=== PATIENT | male | born 1985 | race Caucasian/White ===

== ENCOUNTER 2018-01-07 21:25 | Emergency (ER) | payer SELFPAY ==
[2018-01-07 21:35] VITALS: BP 132/81; PULSE 94; RESP 16; TEMP 36.7; O2SAT 96
--- NOTE | 2018-01-07 21:49 | DI.RPTCT_ITS ---
SYMPTOM/DIAGNOSIS: TRAUMA TO LT LATERAL ORBIT ORBITAL CT: The globes are intact. The lens is located normally bilaterally. There is no evidence of an abnormality involving the retrobulbar fat. There is nothing to suggest a hematoma. The optic nerves are well maintained. The extra ocular muscles and lacrimal glands are intact. Note is made of complete opacification of the left maxillary sinus and mild mucosal thickening involving the right maxillary sinus. There is near complete opacification of the left ethmoid sinus as well.. The bony structures are unremarkable. There is no evidence of significant soft tissue swelling. IMPRESSION: No acute abnormality involving the left orbit is identified. There is significant left sided maxillary and ethmoid sinusitis which may in fact be causing the patient's symptomatology.
--- NOTE | 2018-01-07 22:00 | ED.GENADUL_ITS ---
Medical Decision Making - Medical Decision Making Patient presents today with chief complaint of injury to the left eye. Injuries sustained at work a few hours ago on a piece of 2 x 4 came back suddenly striking the lateral aspect of the left eye. He has orbital tenderness with palpation over the lateral inferior aspect of the orbit. No palpable defect. No crepitus. Extraocular movements are intact. Slight change in visual acuity in the left compared to the right, please see HPI. Patient I discussed imaging techniques. At this point, does not seem to involve the eye itself. He denies any foreign body sensation or pain in the eye. No pain elicited with extraocular movements. Patient I discussed her/ benefits of imaging to evaluate for possible orbital fracture. At this point, I advised that no intervention would be necessary as he exhibits no signs of entrapment. However, given the level of discomfort, patient prefers to undergo imaging. We did discuss risk of radiation. Patient continues to want imaging. I have ordered a CT of the orbits. At the end of my shift, imaging is pending. Care was transitioned to Dr. Krishna. History of Present Illness - General Chief complaint: EyeProblem Stated complaint: EYE INJURY Time Seen by Provider: 01/07/18 21:49 Source: patient, RN notes reviewed Mode of arrival: ambulatory Limitations: no limitations - History of Present Illness Initial comments: Patient is a 32-year-old male presenting today with chief complaint of left eye pain. He reports that few hours prior to arrival, while at work, he was cutting a stood from a wall. He reports that the 2 x 4 suddenly kicked back and struck the lateral aspect of the eye. He denies getting hit in the eye itself. No foreign body sensation. No pain in the eye. Reports that he has had some intermittent blurred vision. Visual acuity was assessed by nursing staff when he first came in, right eye was noted to be 20/20, left 20/35, 20/25 bilateral. Patient does not wear any corrective lenses. Is not having contacts. No break in the skin. Patient reports that he had tetanus approximately 3 months ago by his primary care. Is concerned with the amount of pain he continues to have along the lateral and inferior aspect of the orbital rim. He denies any headache. Denies loss of consciousness. - Related Data Unknown [No Known Home Meds] 01/07/18 Allergies Allergy/AdvReac Type Severity Reaction Status Date / Time amoxicillin [Amoxicillin] Allergy Severe anaphylaxis Unverified 11/01/17 22:07 Penicillins Allergy Severe Anaphylaxis Unverified 11/01/17 22:12 Sulfa (Sulfonamide Allergy Severe anaphylaxis Unverified 11/01/17 22:07 Antibiotics) Review of Systems Constitutional: no symptoms reported Eyes: as per HPI ENT: denies: ear pain, throat pain, dental pain Respiratory: no symptoms reported Skin: as per HPI Neurological: as per HPI Past Medical History - Past Medical History eczema - Social History Alcohol use: none Drug use: none General Exam - General Limitations: no limitations General appearance: alert, in no apparent distress - Head Head exam: Present: atraumatic, normocephalic, normal inspection - Eye Eye exam: Present: PERRL, EOMI, conjunctival injection, periorbital tenderness. Absent: normal apperance (Patient has a circumferential area of ecchymosis along the lateral aspect of the left eye. Ecchymosis approximately 1 cm diameter. No palpable deformity is noted with palpation about the orbit. However, patient has exquisite discomfort along the inferior lateral aspect of the orbit. No pain superiorly. Extraocular muscles are intact. No pain with extra ocular movements. Pupils are equal round and reactive. Minimal injection noted. No foreign bodies visualized does have pain on the tried to pull down the lower lid, this seems to irritate the inferior orbit), scleral icterus, nystagmus, periorbital swelling (Ecchymosis) - ENT ENT exam: Present: normal exam, normal orophraynx, mucous membranes moist, other (Movement of the jaw. TMJ is without pain on palpation or range of motion testing) - Neck Neck exam: Present: normal inspection. Absent: tenderness - Respiratory Respiratory exam: Present: normal lung sounds bilaterally. Absent: respiratory distress - Cardiovascular Cardiovascular Exam: Present: regular rate, normal rhythm, normal heart sounds - Neurological Exam Neurological exam: Present: alert, CN II-XII intact, normal gait - Psychiatric Psychiatric exam: Present: normal affect, normal mood - Skin Skin exam: Present: warm, dry, intact. Absent: normal color (Ecchymosis as above) Course Vital Signs - 24 hr 01/07/18 21:35 Temperature 36.7 C Pulse 94 H Respiratory 16 Rate Blood Pressure 132/81 Pulse Oximetry 96
--- NOTE | 2018-01-07 23:15 | DI.VRAD_ITS ---
EXAM: CT Orbits Without Intravenous Contrast EXAM DATE/TIME: 01/07/2018 9:51 PM CLINICAL HISTORY: 32 years old, male; Pain; Eye pain; Left TECHNIQUE: Axial computed tomography images of the orbits without intravenous contrast. Coronal and sagittal reformatted images were created and reviewed. COMPARISON: No relevant prior studies available. FINDINGS: Orbits: Globes are intact. Lens are located bilaterally. No retrobulbar fat stranding or hematoma. Optic nerves are symmetric and appear unremarkable. Unremarkable appearance of the extraocular muscles and lacrimal glands bilaterally. Sinuses: Complete opacification of the left maxillary sinus. Mild mucosal thickening involving the right maxillary sinus. Near complete opacification of the left ethmoid air cells. Bones/joints: No acute fracture. Soft tissues: No significant facial soft tissue swelling. IMPRESSION: No evidence of acute pathology involving the left orbit. However, there is significant left-sided paranasal sinus disease which may be the cause of the perceived left eye pain. Dictated and Authenticated by: Everette Carter MD. Ordering:RUY JOSE MD
--- NOTE | 2018-01-07 23:27 | ED.FU ---
Disposition Clinical Impression: Contusion of left eyelid and periocular area, initial encounter Disposition: HOME Condition: Good Instructions: Contusion in Adults (ED) Additional Instructions: Use Motrin or Tylenol for pain. Use ice for swelling. Symptoms should resolve over the next few days and you should be feeling better. Follow-up with your doctor next week if not. Return to ED for any vision change, loss of vision, severe headache, other concerns. Referrals: Serafin Dos Santos MD [Primary Care Provider] - Medical Decision Making - Radiology Data Radiology results: report reviewed - Medical Decision Making CT scan of the orbits are negative. There is no fracture seen. He does have sinus disease but he has no sinus symptoms on speaking with him. Patient will be discharged home to use ice and Motrin for pain and swelling. Follow-up with his doctor next week as needed. Return to ED for eye pain, vision change, neurologic symptoms, other concerns. Care Signed Out By:: Anna Amaya - Vital Signs Recent Vitals - 8H: Vital Signs - 8 hr 01/07/18 21:35 Temperature 98.1 F Pulse 94 H Respiratory 16 Rate Blood Pressure 132/81 Pulse Oximetry 96 - Continuation of Care Continuation of Care Plan: Patient presented after being struck near the left eye with a 2 x 4 while working. He did not have loss of consciousness. He had no vision change. He has no eye pain. He was put in for CT scan of the face/orbits. Patient signed out to me pending these results.
== END 2018-01-07 23:30 | disposition home or self-care (01) ==
PROVIDERS: Emergency Provider Emergency Medicine; PCP Internal Medicine
DX: H53.8 Other visual disturbances (principal); S00.12XA Contusion of left eyelid and periocular area, initial encounter; W22.8XXA Striking against or struck by other objects, initial encounter; Y99.0 Civilian activity done for income or pay
CPT/HCPCS: 99284; 70480

== ENCOUNTER 2018-04-03 09:10 | Emergency (ER) | payer SELFPAY ==
[2018-04-03] VITALS (76 sets, daily range): BP systolic 106–170; BP diastolic 51–127; PULSE 62–132; RESP 11–24; TEMP 36.6–36.7; O2SAT 90–98
[2018-04-03] MEDS: Normal Saline 1,000 ML 1000 ML IV (09:40)
--- NOTE | 2018-04-03 09:48 | W.ED.GENAD ---
Discharge Plan Disposition Patient Disposition: HOME Condition: Stable Discharge Details Chief Complaint: Abd Prob Clinical Impression: Epigastric pain, History of esophagitis Primary Care Provider: Serafin Dos Santos ED Provider: Barbara Mock Home Meds and New Rx's Prescriptions: New pantoprazole 20 mg tablet,delayed release (DR/EC) 20 mg PO DAILY Qty: 10 RF: 0 Discharge Instructions Instructions: Epigastric Pain (ED), Esophagitis (ED) Additional Instructions: Take the Protonix daily as directed. Take the Dilaudid or oxycodone as needed and directed for pain. Call the surgery office on Friday morning to schedule follow-up appointment for reevaluation. Return immediately to the emergency department with any worsening or new concerning Referrals: Lissette Hoang MD [ [facility] STAFF PHYSICIAN] - Discharge Data Discharge Date/Time-TO BE ENTERED AT DEPARTURE: 04/03/18 17:58 Discharge Physician: Barbara Mock Medical Decision Making 32-year-old male with a previous history of ruptured esophagus 2 years ago who presents with sudden onset of substernal chest pain with radiation to neck after swallowing a hard piece of venison sausage this morning. Vitals within normal limits. Patient appears uncomfortable. He is able to speak and swallow his own secretions. Patient is spitting up but no active vomiting. There is clear blood tinged phlegm noted in vomitus bag ~approximately 3 cc. Abdomen firm to palpation but not distended, normal bowel sounds. Will give a dose of morphine. Will obtain stat chest x-ray. Discussed with radiologist and will follow with barium swallow. 1020 --chest x-ray negative for subcu or mediastinal air. Will proceed with barium swallow and then CT if indicated. Patient stable in radiology. Complained of return pain, another dose of morphine given. 1110 --possible food bolus noted on barium swallow. No obvious esophageal injury. Recommends CT for further evaluation. EKG notes a rate of 73, sinus, no acute ST elevation or depression, QTC 423, QRS 102. Labs reviewed and unremarkable. Troponin negative. Normal white blood cell count. 1155 --d/w radiologist -there is a stricture noted at the gastroesophageal junction, likely anatomic stricture but neoplasm in the esophagus or fundus could be a possibility. Recommend EGD for further evaluation. Patient states pain returning, dose of Dilaudid ordered. 1235 --d/w surgery -would not recommend EGD at this time due to risk of rupture. Patient likely has rib scar tissue or spasming due to previous stricture/rupture. Patient needs this area to heal first, and recommends clear liquid diet for 24 hours, viscous lidocaine every 6 hours for 36 hours, followed by soft diet without meat, no hot foods or liquids, and to call the surgery office on Friday morning for follow-up. 1320 --patient states that he is concerned about going home due to previous history when he was admitted to the hospital and Dr. Laughlin told him if you would have went home you would have in your sleep . Patient states when he had this previous episode of esophageal rupture, he required admission to the ICU and blood transfusion. Discussed with patient that there is no acute rupture on imaging today and that there would be no acute intervention such as EGD until the area of possible stricture or spasming heels. Discussed with surgery regarding patient's concerns and Dr. Hoang will come to evaluate patient in the ED. Second troponin negative. 1345 --discussed with Dr. Hoang -she reviewed patient's previous records and it appears that patient had an episode of erosive gastritis in 2013 because due to alcohol. She discussed with patient and patient has been drinking Monster energy drinks which likely may have contributed to his symptoms. She recommends a dose of IV Protonix and to continue taking his Protonix at home. She also reviewed patient's ultrasound from a few years ago - patient has continued to state this was abnormal and how they had found his previous rupture - but she states this was normal. 1430 --patient complaining of persistent pain. He was able to swallow the viscous lidocaine and water. Dr. Hoang had previously recommended a dose of sublingual nitro, will give this now. 1615 --no relief with nitro. Pt states the only medicine that worked was dilaudid. Will give another dose. 1715 --pt now smiling and joking in room and feels better. Denies any pain at this time and he is requesting to go home. Pt states he would need dilaudid for home for pain. Will send home with 2 tabs of 2mg dilaudid and 2 doses of 5mg oxycodone liquid. HPI General Mode of arrival: ambulatory. Date/Time Provider Initiated Documentation: 04/03/18 09:32. Limitations to Documentation: no limitations. Information obtained by: patient. HPI Narrative: Pt is a 32yo M who presents to the ED w/ a c/o sudden onset of substernal chest pain that started after swallowed a hard piece of venison sausage this am. Pt has a h/o ruptured esophagus approximately 2 years ago. Patient states pain radiates from his epigastric area up to his upper chest. Patient has not taken anything for pain. Patient vomited once here in the waiting room which contain blood. Patient denies any recent alcohol use. Past medical history: Ruptured esophagus s/p swallowing food Surgical history: None Social history: Former tobacco smoker, occasional alcohol use, denies drugs Meds: None Allergies: PCN, Sulfa Related Data Home Medications Medication Instructions Recorded Confirmed pantoprazole 20 mg PO DAILY #10 tab 04/03/18 Previous Rx's Medication Instructions Recorded pantoprazole 20 mg PO DAILY #10 tab 04/03/18 Allergies Allergy/AdvReac Type Severity Reaction Status Date / Time amoxicillin [Amoxicillin] Allergy Severe anaphylaxis Unverified 11/01/17 22:07 Penicillins Allergy Severe Anaphylaxis Unverified 11/01/17 22:12 Sulfa (Sulfonamide Allergy Severe anaphylaxis Unverified 11/01/17 22:07 Antibiotics) General Stated Complaint: Abd Prob ANDRES: 2 Review of Systems Review of Systems All systems reviewed & are unremarkable except as noted in HPI and below Constitutional Denies chills, Denies excessive sweating, Denies fatigue, Denies fever(s), Denies weakness and Denies weight loss Eyes Reports system reviewed and no additional complaints, except as docu and Denies blurry vision ENT Denies vertigo, Denies dizziness, Denies otalgia, Denies nasal congestion, Denies sore throat and Denies throat swelling Cardiovascular Reports chest pain, Denies syncope, Denies rapid heart rate and Denies dyspnea Respiratory Denies dyspnea Gastrointestinal Denies abdominal pain, Denies diarrhea and Denies vomiting Genitourinary Denies hematuria, Denies dysuria and Denies flank pain Musculoskeletal Denies back pain and Denies joint swelling Integumentary/Breasts Denies lesions and Denies rash Neurologic Denies behavioral changes, Denies confusion, Denies vertigo, Denies dizziness, Denies syncope and Denies weakness Psychiatric Denies behavioral changes, Denies confusion and Denies depression Endocrine Denies excessive sweating and Denies fatigue Hematologic/Lymphatic Denies easy bruising and Denies lymphadenopathy Allergic/Immunologic Denies throat swelling [facility] Social History Smoking/Tobacco Use Status: Current every day Surgical History EGD - IV Sedation (03/17/15) Exam Const General: cooperative and acute distress moderate Orientation: alert, awake and oriented x3 HENMT Head: normal to inspection Ears: hearing grossly normal bilaterally, external ears normal and TM's normal bilaterally General nose exam: external nose normal Face and sinus: normal facial exam Mouth: oral mucosae normal Teeth and gingiva: dentition normal Throat: posterior oropharynx normal Eyes General: appearance normal, both eyes and all related structures Eyelids: eyelids normal EOM: EOM intact bilaterally Neck Neck: normal visual inspection Lymphatic: no lymphadenopathy noted Chest Chest: normal inspection of the chest Resp Effort & Inspection: normal respiratory effort and able to speak in complete sentences Auscultation: clear to auscultation bilaterally Cardio Rate: regular rate Rhythm: regular rhythm GI Inspection: normal to inspection Palpation: soft, firm other (diffuse), no guarding, no hepatosplenomegaly, no masses and nontender Auscultation: normal bowel sounds Back/Spine/Pelvis Back: no CVA tenderness Skin General skin exam: no rashes or lesions noted Neuro General: alert and awake Cognition: normal cognition Speech: speech normal Gait: normal gait Motor: muscle tone normal throughout Sensory Exam: no sensory deficits noted Extrem General: normal to inspection, full ROM and normal capillary refill Psych Appearance: grossly normal Mental Status: mental status grossly normal Speech and Movement: speech and movement normal Affect: normal affect Thought Process: normal Course Vital Signs Temperature 98.1 F 04/03/18 09:29 Pulse 101 H 04/03/18 09:29 Respiratory Rate 24 04/03/18 09:29 Blood Pressure 136/117 H 04/03/18 09:29 Pulse Oximetry 95 04/03/18 09:29 Temperature 98.1 F 04/03/18 09:29 Temperature Source Temporal Artery Scan 04/03/18 09:29 Pulse 101 H 04/03/18 09:29 Respiratory Rate 24 04/03/18 09:29 Blood Pressure 136/117 H 04/03/18 09:29 Blood Pressure Position Supine 04/03/18 09:29 Pulse Oximetry 95 04/03/18 09:29 Oxygen Delivery Method Room Air 04/03/18 09:29 Oxygen Flow Rate 0 04/03/18 09:29 Pain Level 10 04/03/18 09:29
[2018-04-03] MEDS: MORPHine 10 MG/ML VIAL 4 MG IVP ×2 (09:52→10:41)
--- NOTE | 2018-04-03 09:58 | DI.RAD_ITS ---
SYMPTOM/DIAGNOSIS: SUBSTERNAL CHEST PAIN PA AND LATERAL CHEST: Comparison is made with 11 December 2014. The heart size is normal. The lungs are clear. No infiltrate, effusion or pneumomediastinum is seen. There is no evidence of pneumothorax. IMPRESSION: Negative chest x-ray.
[2018-04-03 10:02] LABS: Abs Immature Grans 0.01 k/cumm (0.0-0.09); Absolute Basophil Count 0.02 k/cumm (0.0-0.2); Absolute Eosinophil Count 0.95 k/cumm (0.0-0.7); Absolute Lymphocyte Count 1.11 k/cumm (1.2-3.4); Absolute Monocyte Count 0.66 k/cumm (0.11-0.7); Absolute Neutrophil Count 3.48 k/cumm (1.2-6.7); Basophils % 0.3; Eosinophils % 15.2; HGB 16.9 g/dL (13.5-17.5); Immature Grans % 0.2; Lymphocytes % 17.8; Mean Corp. HGB Concentration 34.5 g/dL (32.0-36.0); Mean Corpuscular Hemoglobin 31.7 pg (27.0-33.0); Mean Corpuscular Volume 91.9 fL (80-95); Mean Platelet Volume 8.7 fL (8.0-11.0); Monocytes % 10.6; Neutrophils % 55.9; Platelet Count 252 x1000/uL (130-400); RBC 5.33 m/cumm (4.50-6.00); RBC Distribution Width 13.2 % (11.8-14.1); White Blood Cell Count 6.23 k/cumm (4.4-10.8)
[2018-04-03 10:13] LABS: ALT 30 U/L (12-78); AST 23 U/L (15-37); Albumin 3.7 g/dL (3.4-5.0); Alkaline Phosphatase 93 U/L (46-116); Anion Gap 9.4 mmol/L (3-11); BUN 18 mg/dL (7-18); Bilirubin, Total 0.6 mg/dL (0.2-1.0); CO2 27.6 mmol/L (21.0-32.0); Calcium 8.9 mg/dL (8.5-10.1); Chloride 103 mmol/L (98-107); Glucose 116 mg/dL (70-100); Potassium 3.9 mmol/L (3.5-5.1); Sodium 140 mmol/L (136-145); Total Protein 7.6 g/dL (6.4-8.2); Troponin I 0.02 ng/mL (0.00-0.06)
--- NOTE | 2018-04-03 11:04 | DI.RAD_ITS ---
SYMPTOMS/DIAGNOSIS: SUDDEN ONSET SUBSTERNAL CHEST PAIN SUPINE ABDOMEN AND Limited ESOPHAGRAM: Two oblique images of the esophagus were performed containing barium. There are a few lucencies, presumably representing air bubbles. No additional images are available. There is no evidence of perforation. The abdominal films show an unremarkable bowel gas pattern. There is a moderate quantity of stool. IMPRESSION: Limited exam. No evidence of esophageal perforation.
[2018-04-03] MEDS: Omnipaque 350 MG/ML 100 ML BTL IJ (11:32)
--- NOTE | 2018-04-03 11:35 | DI.CT_ITS ---
SYMPTOMS/DIAGNOSIS: SUBSTERNAL CHEST PAIN, H/O RUPTURED ESOPHAGUS, ? DISSECTION /FOOD BOLUS/ESOPHAGEAL TEAR CT EXAMINATION OF THE CHEST, ABDOMEN AND PELVIS: The with intravenous and oral contrast enhanced examination was carried out according to the usual protocol. The patient had a barium swallow prior to the CT examination and there are some artifacts generated by the undiluted barium. There is no evidence of a discrete pleural-based, or pulmonary or hilar mass. There is no definite evidence of hilar or mediastinal adenopathy. A region of increased density in the right upper lobe adjacent to the superior portion of the right hilum is identified and there is some scarring likely on the basis of prior inflammatory disease. In the inferior portion of the chest, there is diffuse thickening of the esophageal wall in the mid and lower esophageal segments. No gross mass is seen. There may be one or more small ulcerations, the findings not certain. Suffice it to say, there is no evidence of an esophageal perforation. There is no evidence of free air in the mediastinum or pleural spaces. The CT examination of the abdomen and pelvis was carried out according to the usual protocol. The liver appears intact. The gallbladder is normal. There is no evidence of a pancreatic mass. The spleen and kidneys and adrenals as visualized are intact with some degradation of image quality due to the presence of dense barium in the stomach and proximal small bowel. There is no evidence of bowel obstruction. The appendix is not ideally distended, but appears intact. The reproductive organs as visualized are unremarkable. There is no evidence of an aortic aneurysm. There are degenerative changes involving a mildly levorotoscoliotic lumbar spine. Specifically, there is a narrowed vacuum disc at L5-S1 with discogenic sclerosis and hypertrophic spurring and there are moderately severe facet joint degenerative changes at L4-5 and L5-S1 without evidence of spondylolysis or spondylolisthesis. SUMMARY: An apparent lengthy esophageal stricture as described above. The findings are likely on the basis of scarring secondary to longstanding esophagitis; however, the possibility of a gastric carcinoma invading the esophagus or a distal esophageal carcinoma could not be excluded on the basis of the images obtained today. Further assessment with esophagogastroscopy is recommended.
[2018-04-03] MEDS: HYDROmorphone 2 MG/ML VIAL 1 MG IVP ×2 (11:55→16:28)
[2018-04-03] MEDS: Normal Saline 1,000 ML 150 ML IV (12:00)
[2018-04-03] MEDS: Lidocaine 2% Viscous 15 ML CUP PO (12:47)
[2018-04-03 13:49] LABS: Troponin I 0.03 ng/mL (0.00-0.06)
--- NOTE | 2018-04-03 13:54 | W.SURGCON ---
Date of service: 04/03/18 Time of Service: 13:54 Assessment and Plan (1) Epigastric pain: Current visit: No Status: Acute Epigastric pain that came on after eating some venison today. Has history of erosive esophagitis in [address] scan, barium swallow and Xray all normal. ? of stricture in the esophagus. No stricture in 2013 He has not been taking his protonix Long discussion >30 minutes with patient about his issues in 2014 and his studies last time. We discuses todays studies. Reassured patient that at this time there is no indication that he is bleeding He does most likely have esophagitis and gastritis and needs to be on Protonix again. I discussed a clear liquid diet for 24 hours and then slowly advncing to a soft diet. Stay away from meat, and coffee and Monster drinks. Call our office on Friday to make an appointment with Gaby Salas or myself for a follow up EGD. History of Present Illness Chief Complaint: Abdominal pain Narrative: Mr. Paula is a 32 year old male that ate some hard venison sausage this morning and felt it get stuck. he then had a lot of pain and came to the ED. He stated to the ER physician that 2 years ago he had a ruptured esophagus and was admitted to the ICU for 2 days. CHEST XRAY was normal, Barium swallow was normal but there was a question of a food bolus, CT scan of his chest and abdomen showed possible stricture. Vitals have been stable. When I spoke to him his pulse was 78, BP was 123/76. Hgb and Hct was stable. He does state that he vomited some blood at home. he also had some small amount of emesis in the waiting room that was blood tinged. (Recorded as 3 cc of mucus with a small amount of blood). Records from 2013 and 2014 were reviewed. he was admitted with an Upper GI bleed in 2013. At that time he was binge drinking. EGD revealed severe erosive esophagitis and ulcer. No active bleeding. US was done and was normal. CT scan was normal. He was placed on Protonix BID. He is not taking any antacids and has been having intermittent dysphagia especially with meats. His tells me that he drinks a lot of Monster drinks and coffee. Consults Consult date: 04/03/18 Requesting physician: Barbara Mock Review of Systems Constitutional Reports as per HPI Cardiovascular Denies rapid heart rate, Denies palpitations, Denies dyspnea and Denies dyspnea on exertion Respiratory Denies cough, Denies pain with cough, Denies dyspnea and Denies dyspnea on exertion Gastrointestinal Reports as per HPI Genitourinary Reports system reviewed and no additional complaints, except as docu Musculoskeletal Reports system reviewed and no additional complaints, except as docu Endocrine Reports system reviewed and no additional complaints, except as docu and Denies palpitations Hematologic/Lymphatic Reports system reviewed and no additional complaints, except as docu PFSH Social History Smoking/Tobacco Use Status: Current every day Surgical History EGD - IV Sedation (03/17/15) Exam Const General: cooperative Resp Effort & Inspection: normal respiratory effort Auscultation: clear to auscultation bilaterally Cardio Rate: regular rate Rhythm: regular rhythm Heart Sounds: no gallops, no murmurs and no rubs GI Inspection: other (exzema) Palpation: soft and tender in the epigastrum (no guarding or rebound) Auscultation: normal bowel sounds Results Last Vital Signs Temp 98.1 F 04/03/18 09:29 Pulse 63 04/03/18 13:31 Resp 14 04/03/18 13:40 BP 137/76 04/03/18 13:31 Pulse Ox 96 04/03/18 13:40 Labs : 04/03/18 09:35 04/03/18 09:35 Laboratory Results - last 24 hr 04/03/18 04/03/18 04/03/18 09:35 09:35 09:35 WBC 6.23 RBC 5.33 Hgb 16.9 Hct 49.0 MCV 91.9 MCH 31.7 MCHC 34.5 RDW 13.2 Plt Count 252 MPV 8.7 Immature Gran % 0.2 Neutrophils % 55.9 Lymphocytes % 17.8 Monocytes % 10.6 Eosinophils % 15.2 Basophils % 0.3 Absolute Neutrophils 3.48 Absolute Lymphocytes 1.11 L Absolute Monocytes 0.66 Absolute Eosinophils 0.95 H Absolute Basophils 0.02 Sodium 140 Potassium 3.9 Chloride 103 Carbon Dioxide 27.6 Anion Gap 9.4 BUN 18 Creatinine 1.00 Estimated GFR/1.73 m2 >= 60.00 Glucose 116 H Calcium 8.9 Magnesium 2.0 Total Bilirubin 0.6 AST 23 ALT 30 Alkaline Phosphatase 93 Troponin I 0.02 Total Protein 7.6 Albumin 3.7 Patient ABO/Rh O Positive Antibody Screen Negative 04/03/18 13:19 WBC RBC Hgb Hct MCV MCH MCHC RDW Plt Count MPV Immature Gran % Neutrophils % Lymphocytes % Monocytes % Eosinophils % Basophils % Absolute Neutrophils Absolute Lymphocytes Absolute Monocytes Absolute Eosinophils Absolute Basophils Sodium Potassium Chloride Carbon Dioxide Anion Gap BUN Creatinine Estimated GFR/1.73 m2 Glucose Calcium Magnesium Total Bilirubin AST ALT Alkaline Phosphatase Troponin I 0.03 Total Protein Albumin Patient ABO/Rh Antibody Screen
[2018-04-03] MEDS: Pantoprazole 40 MG VIAL IVP (14:05)
[2018-04-03] MEDS: oxyCODONE 5 MG/5 ML CUP PO (15:25)
--- NOTE | 2018-04-03 15:57 | DI.VRAD_ITS ---
EXAM: XR Chest, 2 Views EXAM DATE/TIME: 04/03/2018 10:09 AM CLINICAL HISTORY: 32 years old, male; Pain; Angina pectoris TECHNIQUE: XR of the chest, 2 views. COMPARISON: CR ABD FLAT UPRIGHT PA CHEST 12/11/2014 10:56 PM FINDINGS: Lungs: Unremarkable. No consolidation. Pleural space: Unremarkable. No pleural effusion. No pneumothorax. Heart/Mediastinum: Unremarkable. No cardiomegaly. Bones/joints: Unremarkable. IMPRESSION: No acute cardiopulmonary findings. Dictated and Authenticated by: Ryne Harmon MD. Ordering:SEJAL KEYS MD
--- NOTE | 2018-04-03 16:31 | DI.VRAD_ITS ---
EXAM: CT Chest With Contrast EXAM DATE/TIME: 04/03/2018 3:18 PM CLINICAL HISTORY: 32 years old, male; Pain; Other: Substernal chest pain; Type not specified TECHNIQUE: Axial computed tomography images of the chest with intravenous contrast. Coronal and sagittal reformatted images were created and reviewed. COMPARISON: CT ABD PELVIS WITH CONTRAST 09/24/2013 12:59 AM FINDINGS: Lungs: Normal. No consolidation. No masses. Pleural space: Normal. No pneumothorax. No pleural effusion. Heart: Normal. No cardiomegaly. No pericardial effusion. Mediastinum: Contrast is present throughout the esophagus and may represent refluxed contrast. Aorta: Normal. No aortic aneurysm. Lymph nodes: Unremarkable. No enlarged lymph nodes. Bones/joints: Unremarkable. No acute fracture. Soft tissues: Unremarkable. IMPRESSION: Possible gastroesophageal reflux, otherwise no acute findings. EXAM: CT Abdomen and Pelvis With Intravenous Contrast EXAM DATE/TIME: 04/03/2018 3:18 PM CLINICAL HISTORY: 32 years old, male; Pain; Other: Substernal chest pain; Type not specified TECHNIQUE: Axial computed tomography images of the abdomen and pelvis with intravenous contrast. Coronal and sagittal reformatted images were created and reviewed. COMPARISON: CT ABD PELVIS WITH CONTRAST 09/24/2013 12:59 AM FINDINGS: Lower thorax: No acute findings. ABDOMEN: Liver: Normal. No mass. Gallbladder and bile ducts: Normal. No calcified stones. No ductal dilation. Pancreas: Normal. No ductal dilation. Spleen: Normal. No splenomegaly. Adrenals: Normal. No mass. Kidneys and ureters: Normal. No hydronephrosis. Stomach and bowel: Normal. No obstruction. No mucosal thickening. Appendix: The appendix is well-seen and appears normal. PELVIS: Bladder: Unremarkable as visualized. Reproductive: Unremarkable as visualized. ABDOMEN and PELVIS: Intraperitoneal space: Normal. No free air. No significant fluid collection. Bones/joints: No acute fracture. No dislocation. Soft tissues: Unremarkable. Vasculature: Normal. No abdominal aortic aneurysm. Lymph nodes: Normal. No enlarged lymph nodes. Other findings: Orally administered contrast is more dense than normal and causes streak artifact, somewhat limiting evaluation. IMPRESSION: No acute findings. Dictated and Authenticated by: Ryne Harmon MD. Ordering:SEJAL KEYS MD
[2018-04-03 17:32] LABS: Lipase 90 U/L (73-393)
[2018-04-03] MEDS: HYDROmorphone 2 MG TAB 4 MG PO (17:43)
[2018-04-03] MEDS: oxyCODONE 5 MG/5 ML CUP 10 MG PO (17:44)
== END 2018-04-03 17:58 | disposition home or self-care (01) ==
PROVIDERS: Emergency Provider Physician Assistant; PCP Internal Medicine
DX: R10.13 Epigastric pain (principal); K20.9 Esophagitis, unspecified; R93.3 Abnormal findings on diagnostic imaging of other parts of digestive tract
CPT/HCPCS: 36415; 74177; 80053; 83690; 86850; 86900; 86901; 93005; 96361; 96374; 96375; 96376; 99253; 99285; 71046; 71260; 74220; 74247; 83735; 84484; 85025; 93010; J2270; J3490

== ENCOUNTER 2018-06-08 14:43 | Emergency (ER) | payer SELFPAY ==
[2018-06-08 14:45] VITALS: BP 116/78; PULSE 108; RESP 18; TEMP 37; O2SAT 94
--- NOTE | 2018-06-08 14:57 | DI.RAD_ITS ---
SYMPTOMS/DIAGNOSIS: COUGH, ? PNEUMONIA PA AND LATERAL CHEST: Comparison is made with [id number]. The heart size is normal. The lungs are well inflated and clear. No infiltrate or effusion is seen. There has been no change from the previous exam. IMPRESSION: Negative chest x-ray.
[2018-06-08 15:02] VITALS: RESP 19; RESP 7
[2018-06-08] MEDS: Albuterol/Ipratropium 3 ML UPD VIAL (15:02)
[2018-06-08 15:11] VITALS: RESP 4
--- NOTE | 2018-06-08 15:59 | W.ED.GENAD ---
Discharge Plan Disposition Patient Disposition: HOME Condition: Stable Discharge Details Chief Complaint: RespSymp Clinical Impression: Acute bronchitis Primary Care Provider: Serafin Dos Santos ED Provider: Barbara Mock Home Meds and New Rx's Prescriptions: New doxycycline hyclate 100 mg capsule 100 mg PO BID 5 Days Qty: 10 RF: 0 prednisone 50 mg tablet 50 mg PO DAILY 4 Days Qty: 4 RF: 0 Continued pantoprazole 20 mg tablet,delayed release (DR/EC) 20 mg PO DAILY Qty: 10 RF: 0 Discharge Instructions Instructions: Acute Bronchitis (ED) Additional Instructions: Use the inhaler as needed and directed. Take the steroids until finished. If you have no improvement or worsening of symptoms in the next 2 days, you may start the antibiotics. Follow-up with your primary care doctor in 1 week for reevaluation. Return immediately to the emergency department any worsening or new concerning symptoms. Stand Alone Forms: Work Release Discharge Data Discharge Date/Time-TO BE ENTERED AT DEPARTURE: 06/08/18 16:18 Discharge Physician: Barbara Mock Medical Decision Making 32-year-old male with a history of GERD/alcohol abuse and GI bleed with esophageal repair w/ cough with green sputum and shortness of breath since yesterday. Heart rate 108 and O2 saturation 94% on arrival. Afebrile. Patient is speaking in full sentences, he appears nontoxic and in no acute respiratory distress on arrival. He was given a DuoNeb and sent for chest x-ray. No complaint of fever or other flulike symptoms, so influenza swab not ordered. Upon reevaluation, patient has some scattered wheezing but otherwise good breath sounds. Chest x-ray negative. Reassessment of heart rate 90s, oxygen saturation 95% on room air. Patient offered another neb treatment but declines. Will give a dose of p.o. prednisone and albuterol inhaler for home. Patient is not a smoker. Will send home with a prescription for antibiotics if symptoms do not improve or worsen. Patient instructed to follow-up primary care doctor and to return here at any time if worse. Medical Records Medical records reviewed: Yes I reviewed the patient's medical records. Imaging Data Radiologic Study: Radiologist's impression: PA AND LATERAL CHEST: Comparison is made with [id number]. The heart size is normal. The lungs are well inflated and clear. No infiltrate or effusion is seen. There has been no change from the previous exam. IMPRESSION: Negative chest x-ray. HPI General Mode of arrival: ambulatory. Date/Time Provider Initiated Documentation: 06/08/18 14:57. Limitations to Documentation: no limitations. Information obtained by: patient. HPI Narrative: Patient is a 32-year-old male with a history of GERD and GI bleed and esophageal repair due to alcohol abuse who presents with cough with green sputum and shortness of breath since yesterday. Patient denies any known fever and states he has been eating and drinking normally. He denies any ear pain, sore throat or chest pain. Patient states I think I may have pneumonia. Related Data Home Medications Medication Instructions Recorded Confirmed pantoprazole 20 mg PO DAILY #10 tab 04/03/18 06/08/18 doxycycline hyclate 100 mg PO BID 5 Days #10 cap 06/08/18 prednisone 50 mg PO DAILY 4 Days #4 tab 06/08/18 Previous Rx's Medication Instructions Recorded pantoprazole 20 mg PO DAILY #10 tab 04/03/18 doxycycline hyclate 100 mg PO BID 5 Days #10 cap 06/08/18 prednisone 50 mg PO DAILY 4 Days #4 tab 06/08/18 Allergies Allergy/AdvReac Type Severity Reaction Status Date / Time amoxicillin [Amoxicillin] Allergy Severe anaphylaxis Unverified 06/08/18 14:50 Penicillins Allergy Severe Anaphylaxis Unverified 06/08/18 14:50 Sulfa (Sulfonamide Allergy Severe anaphylaxis Unverified 06/08/18 14:50 Antibiotics) General Stated Complaint: RespSymp ANDRES: 3 Review of Systems Review of Systems All systems reviewed & are unremarkable except as noted in HPI and below Constitutional Reports as per HPI, Denies chills and Denies fever(s) Eyes Denies blurry vision ENT Denies dizziness, Denies sore throat and Denies throat swelling Cardiovascular Denies chest pain and Reports dyspnea Respiratory Reports chest congestion, Reports cough and Reports dyspnea Gastrointestinal Denies abdominal pain, Denies diarrhea and Denies vomiting Genitourinary Denies hematuria and Denies dysuria Musculoskeletal Denies back pain and Denies numbness Integumentary/Breasts Denies lesions and Denies rash Neurologic Denies dizziness, Denies focal weakness and Denies numbness Allergic/Immunologic Denies throat swelling [facility] Medical History History of alcohol abuse (Acute) Hx of upper gastrointestinal hemorrhage (Acute ~2014) Erosive esophagitis (Chronic) GERD (gastroesophageal reflux disease) (Chronic) Surgical History EGD - IV Sedation (03/17/15) History of esophageal surgery (Acute) Social History Smoking/Tobacco Use Status: Current-Occasional alcohol intake: former substance use type: does not use Exam Const General: cooperative and healthy appearing Orientation: alert and awake HENMT Head: normal to inspection Ears: hearing grossly normal bilaterally, external ears normal and TM's normal bilaterally General nose exam: external nose normal Face and sinus: normal facial exam Mouth: oral mucosae normal Teeth and gingiva: dentition normal Throat: posterior oropharynx normal Eyes General: appearance normal, both eyes and all related structures Eyelids: eyelids normal EOM: EOM intact bilaterally Neck Neck: normal visual inspection Lymphatic: no lymphadenopathy noted Chest Chest: normal inspection of the chest Resp Effort & Inspection: normal respiratory effort, able to speak in complete sentences, not labored, no nasal flaring, no pursed lip breathing, no respiratory distress, not tachypneic, no tripod positioning and no use of accessory muscles Auscultation: no crackles, no rales, no rhonchi and wheezes scattered wheezes Cardio Rate: regular rate Rhythm: regular rhythm GI Inspection: normal to inspection Palpation: soft, not firm, no guarding, no hepatosplenomegaly, no masses and nontender Auscultation: normal bowel sounds Skin General skin exam: no rashes or lesions noted Neuro General: alert and awake Cognition: normal cognition Speech: speech normal Gait: normal gait Motor: muscle tone normal throughout Sensory Exam: no sensory deficits noted Extrem General: normal to inspection, full ROM, normal capillary refill and no edema Psych Appearance: grossly normal Mental Status: mental status grossly normal Speech and Movement: speech and movement normal Affect: normal affect Thought Process: normal Course Vital Signs Temperature 98.6 F 06/08/18 14:45 Pulse 108 H 06/08/18 14:45 Respiratory Rate 18 06/08/18 14:45 Blood Pressure 116/78 06/08/18 14:45 Pulse Oximetry 94 L 06/08/18 14:45 Temperature 98.6 F 06/08/18 14:45 Temperature Source Skin 06/08/18 14:45 Pulse 108 H 06/08/18 14:45 Respiratory Rate 18 06/08/18 14:45 Respiratory Effort Non-Labored 06/08/18 14:50 Respiratory Depth Normal 06/08/18 14:50 Blood Pressure 116/78 06/08/18 14:45 Pulse Oximetry 94 L 06/08/18 14:45 Oxygen Delivery Method Room Air 06/08/18 14:45 Oxygen Flow Rate 0 06/08/18 14:45
--- NOTE | 2018-06-08 16:02 | ED.GENADUL_ITS ---
Discharge Plan Disposition Patient Disposition: HOME Condition: Stable Discharge Details Chief Complaint: RespSymp Clinical Impression: Acute bronchitis Primary Care Provider: Serafin Dos Santos ED Provider: Barbara Mock Home Meds and New Rx's Prescriptions: New doxycycline hyclate 100 mg capsule 100 mg PO BID 5 Days Qty: 10 RF: 0 prednisone 50 mg tablet 50 mg PO DAILY 4 Days Qty: 4 RF: 0 Continued pantoprazole 20 mg tablet,delayed release (DR/EC) 20 mg PO DAILY Qty: 10 RF: 0 Discharge Instructions Instructions: Acute Bronchitis (ED) Additional Instructions: Use the inhaler as needed and directed. Take the steroids until finished. If you have no improvement or worsening of symptoms in the next 2 days, you may start the antibiotics. Follow-up with your primary care doctor in 1 week for reevaluation. Return immediately to the emergency department any worsening or new concerning symptoms. Stand Alone Forms: Work Release Discharge Data Discharge Date/Time-TO BE ENTERED AT DEPARTURE: 06/08/18 16:18 Discharge Physician: Barbara Mock Medical Decision Making 32-year-old male with a history of GERD/alcohol abuse and GI bleed with esophageal repair w/ cough with green sputum and shortness of breath since yesterday. Heart rate 108 and O2 saturation 94% on arrival. Afebrile. Patient is speaking in full sentences, he appears nontoxic and in no acute respiratory distress on arrival. He was given a DuoNeb and sent for chest x-ray. No complaint of fever or other flulike symptoms, so influenza swab not ordered. Upon reevaluation, patient has some scattered wheezing but otherwise good breath sounds. Chest x-ray negative. Reassessment of heart rate 90s, oxygen saturation 95% on room air. Patient offered another neb treatment but declines. Will give a dose of p.o. prednisone and albuterol inhaler for home. Patient is not a smoker. Will send home with a prescription for antibiotics if symptoms do not improve or worsen. Patient instructed to follow-up primary care doctor and to return here at any time if worse. Medical Records Medical records reviewed: Yes I reviewed the patient's medical records. Imaging Data Radiologic Study: Radiologist's impression: PA AND LATERAL CHEST: Comparison is made with [id number]. The heart size is normal. The lungs are well inflated and clear. No infiltrate or effusion is seen. There has been no change from the previous exam. IMPRESSION: Negative chest x-ray. HPI General Mode of arrival: ambulatory . Date/Time Provider Initiated Documentation: 06/08/18 14:57 . Limitations to Documentation: no limitations . Information obtained by: patient . HPI Narrative: Patient is a 32-year-old male with a history of GERD and GI bleed and esophageal repair due to alcohol abuse who presents with cough with green sputum and shortness of breath since yesterday. Patient denies any known fever and states he has been eating and drinking normally. He denies any ear pain, sore throat or chest pain. Patient states I think I may have pneumonia. Related Data Home Medications Medication Instructions Recorded Confirmed pantoprazole 20 mg PO DAILY #10 tab 04/03/18 06/08/18 doxycycline hyclate 100 mg PO BID 5 Days #10 cap 06/08/18 prednisone 50 mg PO DAILY 4 Days #4 tab 06/08/18 Previous Rx's Medication Instructions Recorded pantoprazole 20 mg PO DAILY #10 tab 04/03/18 doxycycline hyclate 100 mg PO BID 5 Days #10 cap 06/08/18 prednisone 50 mg PO DAILY 4 Days #4 tab 06/08/18 Allergies Allergy/AdvReac Type Severity Reaction Status Date / Time amoxicillin [Amoxicillin] Allergy Severe anaphylaxis Unverified 06/08/18 14:50 Penicillins Allergy Severe Anaphylaxis Unverified 06/08/18 14:50 Sulfa (Sulfonamide Allergy Severe anaphylaxis Unverified 06/08/18 14:50 Antibiotics) General Stated Complaint: RespSymp ANDRES: 3 Review of Systems Review of Systems All systems reviewed & are unremarkable except as noted in HPI and below Constitutional Reports as per HPI, Denies chills and Denies fever(s) Eyes Denies blurry vision ENT Denies dizziness, Denies sore throat and Denies throat swelling Cardiovascular Denies chest pain and Reports dyspnea Respiratory Reports chest congestion, Reports cough and Reports dyspnea Gastrointestinal Denies abdominal pain, Denies diarrhea and Denies vomiting Genitourinary Denies hematuria and Denies dysuria Musculoskeletal Denies back pain and Denies numbness Integumentary/Breasts Denies lesions and Denies rash Neurologic Denies dizziness, Denies focal weakness and Denies numbness Allergic/Immunologic Denies throat swelling [facility] Medical History History of alcohol abuse (Acute) Hx of upper gastrointestinal hemorrhage (Acute ~2014) Erosive esophagitis (Chronic) GERD (gastroesophageal reflux disease) (Chronic) Surgical History EGD - IV Sedation (03/17/15) History of esophageal surgery (Acute) Social History Smoking/Tobacco Use Status: Current-Occasional alcohol intake: former substance use type: does not use Exam Const General: cooperative and healthy appearing Orientation: alert and awake HENMT Head: normal to inspection Ears: hearing grossly normal bilaterally, external ears normal and TM's normal bilaterally General nose exam: external nose normal Face and sinus: normal facial exam Mouth: oral mucosae normal Teeth and gingiva: dentition normal Throat: posterior oropharynx normal Eyes General: appearance normal, both eyes and all related structures Eyelids: eyelids normal EOM: EOM intact bilaterally Neck Neck: normal visual inspection Lymphatic: no lymphadenopathy noted Chest Chest: normal inspection of the chest Resp Effort & Inspection: normal respiratory effort, able to speak in complete sentences, not labored, no nasal flaring, no pursed lip breathing, no respiratory distress, not tachypneic, no tripod positioning and no use of accessory muscles Auscultation: no crackles, no rales, no rhonchi and wheezes scattered wheezes Cardio Rate: regular rate Rhythm: regular rhythm GI Inspection: normal to inspection Palpation: soft, not firm, no guarding, no hepatosplenomegaly, no masses and nontender Auscultation: normal bowel sounds Skin General skin exam: no rashes or lesions noted Neuro General: alert and awake Cognition: normal cognition Speech: speech normal Gait: normal gait Motor: muscle tone normal throughout Sensory Exam: no sensory deficits noted Extrem General: normal to inspection, full ROM, normal capillary refill and no edema Psych Appearance: grossly normal Mental Status: mental status grossly normal Speech and Movement: speech and movement normal Affect: normal affect Thought Process: normal Course Vital Signs Temperature 98.6 F 06/08/18 14:45 Pulse 108 H 06/08/18 14:45 Respiratory Rate 18 06/08/18 14:45 Blood Pressure 116/78 06/08/18 14:45 Pulse Oximetry 94 L 06/08/18 14:45 Temperature 98.6 F 06/08/18 14:45 Temperature Source Skin 06/08/18 14:45 Pulse 108 H 06/08/18 14:45 Respiratory Rate 18 06/08/18 14:45 Respiratory Effort Non-Labored 06/08/18 14:50 Respiratory Depth Normal 06/08/18 14:50 Blood Pressure 116/78 06/08/18 14:45 Pulse Oximetry 94 L 06/08/18 14:45 Oxygen Delivery Method Room Air 06/08/18 14:45 Oxygen Flow Rate 0 06/08/18 14:45
[2018-06-08] MEDS: predniSONE 20 MG TAB 60 MG PO (16:14)
[2018-06-08] MEDS: Albuterol HFA 8 GM 60 PUFF INH IH (16:14)
--- NOTE | 2018-06-08 16:15 | NUR.NOTE ---
patient medicated per MD order Nursing Note:
== END 2018-06-08 16:18 | disposition home or self-care (01) ==
PROVIDERS: Emergency Provider Physician Assistant; PCP Internal Medicine
DX: J20.9 Acute bronchitis, unspecified (principal)
CPT/HCPCS: 94640; 99283; 71046; J7512; J7620

== ENCOUNTER 2018-12-15 17:51 | Emergency (ER) | payer SELFPAY ==
[2018-12-15 18:00] VITALS: BP 136/79; PULSE 79; RESP 16; TEMP 36.8; O2SAT 96
--- NOTE | 2018-12-15 19:12 | ED.GENADUL_ITS ---
Discharge Plan Discharge Details Chief Complaint: Sorethroat Primary Care Provider: Serafin Dos Santos ED Provider: Angela Swanson Home Meds and New Rx's Prescriptions: No Action pantoprazole 20 mg tablet,delayed release (DR/EC) 20 mg PO DAILY Qty: 10 RF: 0 Discharge Data Discharge Date/Time-TO BE ENTERED AT DEPARTURE: 12/15/18 19:12 Medical Decision Making Osmani Paula is a 33 y/o man with history of GERD who presented to the emergency department requesting strep testing in the absence of symptoms. So patient is very well and nontoxic appearing on exam. Normal voice, handling secretions without issue. He refused to undergo full physical examination. Patient is requesting to leave at this time. Exam/history is not consistent with acute emergent life-threatening process. I had a lengthy discussion with the patient regarding return to emergency department precautions and importance of outpatient follow-up. Patient verbalized understanding of the plan was amenable. Patient was discharged home with clear plan for outpatient follow-up. All questions were answered. Medical Records Medical records reviewed: Yes I reviewed the patient's medical records. Lab Data Lab results reviewed: Yes I reviewed the patient's lab results. HPI General Mode of arrival: ambulatory . Date/Time Provider Initiated Documentation: 12/15/18 19:12 . Limitations to Documentation: no limitations . Information obtained by: patient, RN notes reviewed and old records reviewed . HPI Narrative: Osmani Paula is a 33 y/o man with history of GERD who presents the emergency department requesting strep test. Patient reports that his was recently diagnosed with strep throat and he would like to be tested. He denies having any complaints. Patient denies sore throat or other pain, fever, vomiting, rash. He states that he feels well in his usual state of health. No recent illness. Has been eating and drinking as usual. At the time of my encounter, patient had been tested for strep by nursing, [id number] strep negative. Patient states to me that he just came for strep test and would like to leave, does not want physical exam or further evaluation. Related Data Home Medications Medication Instructions Recorded Confirmed pantoprazole 20 mg PO DAILY #10 tab 04/03/18 06/08/18 Previous Rx's Medication Instructions Recorded pantoprazole 20 mg PO DAILY #10 tab 04/03/18 Allergies Allergy/AdvReac Type Severity Reaction Status Date / Time amoxicillin [Amoxicillin] Allergy Severe anaphylaxis Unverified 12/15/18 18:03 Penicillins Allergy Severe Anaphylaxis Unverified 12/15/18 18:03 Sulfa (Sulfonamide Allergy Severe anaphylaxis Unverified 12/15/18 18:03 Antibiotics) General Stated Complaint: Sorethroat ANDRES: 4 Review of Systems Review of Systems Constitutional: denies fevers, reports fatigue Eyes: denies eye pain ENT: denies facial pain, dental pain, sore throat Cardiovascular: denies chest pain Respiratory: denies SOB, cough GI: denies abdominal pain, vomiting, diarrhea : denies flank pain MSK: denies back pain, neck pain, arthralgias, myalgias Neuro: denies headaches [facility] Medical History Erosive esophagitis (Chronic) GERD (gastroesophageal reflux disease) (Chronic) History of alcohol abuse (Acute) Hx of upper gastrointestinal hemorrhage (Acute ~2013) Surgical History (Updated 06/10/18 @ 08:12 by Barbara Mock DO) EGD - IV Sedation (03/17/15) History of esophageal surgery (Acute) Social History Smoking/Tobacco Use Status: Current every day Tobacco Type: cigarettes Smoking cigarettes per day: 10 Alcohol Intake: former Drug use: Never Substance use type: does not use Do you feel safe in your relationship?: Yes Exam Narrative Exam Narrative: Constitutional: well and [id number], pleasant, conversing normally HENT: head atraumatic/normocephalic/normal inspection, mucous membranes moist, patient declined intraoral examination Eyes: conjunctiva normal, sclera normal, pupils 3mm b/l Neck: no stridor, normal ROM, trachea midline Resp: normal work of breathing Skin: warm, dry, normal color, no rash Neuro: alert, not altered, grossly non-focal, normal tone Ext: Moving all extremities equally Psych: normal mood, normal affect, normal behavior Course Vital Signs Temperature 36.8 C 12/15/18 18:00 Pulse 79 12/15/18 18:00 Respiratory Rate 16 12/15/18 18:00 Blood Pressure 136/79 12/15/18 18:00 Pulse Oximetry 96 12/15/18 18:00 Temperature 36.8 C 12/15/18 18:00 Temperature Source Skin 12/15/18 18:00 Pulse 79 12/15/18 18:00 Respiratory Rate 16 12/15/18 18:00 Respiratory Effort Non-Labored 12/15/18 18:00 Blood Pressure 136/79 12/15/18 18:00 Blood Pressure Position Sitting 12/15/18 18:00 Pulse Oximetry 96 12/15/18 18:00 Oxygen Delivery Method Room Air 12/15/18 18:00 Oxygen Flow Rate 0 12/15/18 18:00 Pain Level 0 12/15/18 18:00 Lab/Test Results Lab/Test Results: 12/15/18 18:00 Pharynx Streptococcus Screen (MIKEY) - Pending POC Strep Test-MARIAMA(Rapid) Start: 12/15/18 18:10 Freq: .Rapid Strep Test Status: Active Protocol: Document 12/15/18 18:10 MMQ (Rec: 12/15/18 18:10 MMQ [id number]) Strep test-MARIAMA(Rapid)-POC POC-Strep test-MARIAMA (Rapid) Negative POC-Strep test-MARIAMA (Rapid) Negative
--- NOTE | 2018-12-17 09:08 | W.ED.FU ---
Follow Up Plan: Called patient this morning to inform him of positive group A strep results from his strep swab. Patient states that he continues to feel malaise and fatigue with no improvement of symptoms. Given his positive results and not improving patient was placed upon azithromycin 500 mg daily for 5 days due to his penicillin allergy. Did discuss with patient he may return for any worsening symptoms. After phone discussion patient had no other questions or concerns.
== END 2018-12-15 19:12 ==
PROVIDERS: Emergency Provider Student in an Organized Health Care Education/Training Program; PCP Internal Medicine
DX: J02.0 Streptococcal pharyngitis (principal)
CPT/HCPCS: 87880; 99283; 87081

== ENCOUNTER 2025-02-18 23:33 | Observation (INO) | payer SELFPAY ==
[2025-02-18 23:46] VITALS: PULSE 95; RESP 18; TEMP 36.6; O2SAT 99
--- NOTE | 2025-02-18 23:56 | ED.GENADUL_ITS ---
Discharge Plan Disposition Patient Disposition: Admit to [facility] Condition: Fair Discharge Details Clinical Impression: Bilateral leg and foot pain, Bilateral lower extremity edema, Rash and nonspecific skin eruption Primary Care Provider: Eufemia,Local ED Provider: Caleb Krishna and New Rx's Prescriptions: No Action pantoprazole 20 mg tablet,delayed release (DR/EC) 20 mg PO DAILY Qty: 10 0RF HPI General Mode of arrival: ambulatory . Date/Time Provider Initiated Documentation: 02/18/25 23:35 . Limitations to Documentation: no limitations . Information obtained by: patient and RN notes reviewed . HPI Narrative: Patient presents to ED with worsening bilateral foot and ankle pain over the last 3 days. Tonight has noticed bilateral lower extremity swelling, redness, weeping and earlier a purpleish hue. Having difficulty ambulating now because of the pain. Describes it as a deep ache. Denies any burning, numbness, pruritus. Does have a history of eczema. There has been no change in any of his soaps, detergents, clothing, boots. Denies any fever or viral illnesses as of recent. Denies any abdominal pain, vomiting, chest pain, shortness of breath, cough, hematuria. Has never had anything like this before. Came in because the pain just continues to get worse. Related Data Home Medications ?Medication ?Instructions ?Recorded ?Confirmed pantoprazole 20 mg tablet,delayed 20 mg PO DAILY #10 t abs 04/03/18 06/08/18 release Previous Rx's ?Medication ?Instructions ?Recorded pantoprazole 20 mg tablet,delayed 20 mg PO DAILY #10 t abs 04/03/18 release Allergies Allergy/AdvReac Type Severity Reaction Status Date / Time amoxicillin (Amoxicillin) Allergy Severe anaphylaxis Unverified 12/15/18 18:03 Penicillins Allergy Severe Anaphylaxis Unverified 12/15/18 18:03 Sulfa (Sulfonamide Allergy Severe anaphylaxis Unverified 12/15/18 18:03 Antibiotics) General ANDRES: 4 Exam Narrative Exam Narrative: Const: WDWN male in NAD. VS per triage. HEENT: NC/AT. Normal facial exam. Neck: Supple. Trachea midline. Lungs: Normal respiratory effort. Cor: RRR. Good DP/PT pulses. Neuro: A+O x 3. Normal speech, mentation, gait. Cranial nerves II - XII grossly intact. No gross motor or sensory deficit. Ext: BLE edema with erythema and skin sloughing/weeping of clear fluid. Nonblanching areas of petechiae and very small purpura. Skin changes noted from distal third of the jacobs and calf area all the way down to the toes. Medical Decision Making Patient presenting to ED with 3 days of bilateral foot and ankle pain which has become much worse and now associated with skin changes, rash, ulceration and weeping. Denies any other symptomatology. Has never had this previously. Does have history of eczema but has had no change in any of his clothing, soaps, detergents. Does not describe burning or itching, describes a deep painful ache. Has areas of skin sloughing with weeping of clear fluid as well as nonblanching petechiae and small purpura. This would suggest possibility of vasculitis. May possibly be related to eczema or dermatitis but he is not describing pruritus. He is not describing skin pain and while it is very erythematous it is warm not hot to touch. He has had no fever. Will place IV and give morphine for pain, obtain labs including acute phase reactants and reevaluate. 4 mg of morphine did not help, repeat dose given. Laboratory studies show a normal white count and differential as well as sed rate. His lactate is a little high at 2.5. His kidney function and liver function are normal. C- reactive protein a little high at 1.20. Urinalysis completely negative. Pota ssium a little low at 3.2. Coags are normal. Platelets are normal. Repeat dose of morphine with no help. Given IV ketorolac and hydromorphone. I do not think this is related to cellulitis or infection and will hold off on antibiotics. Seems more likely to be a vasculitis type etiology given the petechiae and small purpura. Does have some sloughing of his skin with weeping that may be related to dermatitis. Cannot explain the deep aching pain that he describes. Discussed with hospitalist for admission for pain control and further evaluation of potential causes. Lab Data Lab results reviewed: Yes I reviewed the patient's lab results. Lab results narrative: see MDM Quality:SDOH Health Related Social Needs: Health related social needs material hardship daily ac tivities lonely/isolated Health related social needs details none PFSH All Active Problems Rash and nonspecific skin eruption (Acute) Bilateral lower extremity edema (Acute) Bilateral leg and foot pain (Acute) History of alcohol abuse (Acute) Hx of upper gastrointestinal hemorrhage (Acute ~2014) Erosive esophagitis (Chronic) Epigastric pain (Acute) a. With nausea. History of dysphagia (Chronic) History of Surgical Procedure (Chronic) a. Removal of foreign bodies from the esophagus x [address] Owen Laughlin. Medical History (Updated 02/19/25 @ 02:49 by Caleb Krishna MD) GERD (gastroesophageal reflux disease) Surgical History History of esophageal surgery Social History Smoking/Tobacco Use Status: Current every day Tobacco Type: cigarettes Smoking packs per day: 0 Smoking cigarettes per day: 0.0 Years smoked: 0 Smoking pack- years: 0.00 Smoking risk assessment performed?: Yes Alcohol Intake: former Drug use: Never Substance use type: does not use Do you feel safe in your relationship?: Yes
[2025-02-19] VITALS (21 sets, daily range): BP systolic 116–143; BP diastolic 77–91; PULSE 73–108; RESP 15–18; TEMP 36.5–37; O2SAT 93–100
[2025-02-19 00:43] LABS: BE (Venous) 4 mmol/L (-2-3); HCO3 (Venous) 30 mmol/L (23-28); O2 Sat (Venous) 63 %; TCO2 (Venous) 26 mmol/L (24-29); pCO2 (Venous) 55 mmHg (41-51); pO2 (Venous) 36 mmHg
[2025-02-19 00:45] LABS: Abs Immature Grans 0.02 10^3/uL (0.0-0.06); ESR 5 mm/hr (0-15); HCT 50.4 % (40.0-50.0); HGB 17.2 g/dL (13.5-17.5); Immature Grans % 0.3 %; MCH 31.0 pg (27.0-33.0); MCHC 34.1 % (32.0-36.0); MCV 91 fL (80-95); MPV 8.4 fL (8.0-11.0); Platelet Count 244 10^3/uL (130-400); RBC 5.55 10^6/uL (4.36-5.78); RDW 12.7 % (11.8-14.1); RDW-SD 42.3 fL; WBC 6.79 10^3/uL (4.4-10.8)
[2025-02-19] MEDS: Normal Saline Flush 10 ML SYR IVP ×7 (00:47→19:45)
[2025-02-19] MEDS: MORPHine 4 MG/ML SYR IVP ×2 (00:47→01:47)
[2025-02-19 01:01] LABS: ALT 19 U/L (16-63); AST 29 U/L (15-37); Albumin 3.3 g/dL (3.4-5.0); Alkaline Phosphatase 121 U/L (46-116); Anion Gap 8.1 mmol/L (3-11); BUN 7 mg/dL (7-18); Bilirubin, Total 0.2 mg/dL (0.2-1.0); C-Reactive Protein 1.20 mg/dL (<or=0.5); CO2 31.9 mmol/L (21.0-32.0); Calcium 8.7 mg/dL (8.5-10.1); Chloride 104 mmol/L (98-107); Estimated GFR 110.73 (mL/min/1.73m2); Glucose 74 mg/dL (74-106); Magnesium 2.1 mg/dL (1.8-2.4); Potassium 3.2 mmol/L (3.5-5.1); Sodium 144 mmol/L (136-145); Total Protein 7.3 g/dL (6.4-8.2)
[2025-02-19 01:08] LABS: INR 1.0 (0.9-1.1); PTT Activated 26.1 sec (20.6-30.2); Prothrombin Time 10.1 sec (9.1-11.1)
[2025-02-19] MEDS: Normal Saline 1,000 ML 150 ML IV (01:08)
[2025-02-19 01:20] LABS: Glucose Negative (Negative)
[2025-02-19] MEDS: Ketorolac 15 MG/ML VIAL IVP (02:19)
[2025-02-19] MEDS: HYDROmorphone 2 MG/ML SYR 1 MG IVP ×6 (02:20→23:58)
--- NOTE | 2025-02-19 02:22 | HPE_ITS ---
Date of service: 02/19/25 Time of Service: 02:23 Assessment and Plan Assessment and plan (1) Rash and nonspecific skin eruption: Start date: 02/19/25 Status: Acute Assessment and plan: This is a 39-year-old gentleman with a history of fairly severe eczema not on treatment who presents with a sudden onset rash which appears to be in the distribution of his socks and boots with a change in work status recently being on the ground with more standing and stress on his lower extremities. He also sweats when he is working in his boots. This may be an exacerbation of his eczema though there is no itching but mostly pain. He has good circulation and the rash does have increased warmth to touch with some concerns for secondary infection. He has multiple allergies and this will be considered when treating possible secondary infection. He was initiated on clindamycin IV which can be converted to oral therapy if effective. He also started on high-dose IV Solu- Medrol 125 mg every 8 hours, and if he has a good response he will be converted to oral prednisone with pulse therapy. This has helped his eczema in the past. Long-term if this rash persists he may need punch biopsy for diagnosis. This can be done as an outpatient. Wound care was consulted but there is no indication for surgical consultation at this time. He should be seeing dermatology for this problem and his chronic issues. It is anticipated he will be discharged home on oral therapy within 48 hours. He is a full code. (2) Bilateral lower extremity edema: Start date: 02/19/25 Status: Acute Assessment and plan: Patient edema seems to be secondary to his acute rash and it was preceded by progressive, severe pain in his lower extremity with standing at work. He has good circulation and he has had no previous problems with peripheral edema. This should resolve with treatment of his rash and possible infection. (3) Bilateral leg and foot pain: Start date: 02/19/25 Status: Acute Assessment and plan: Patient had pain in his legs prior to presentation of his rash and there does not appear to be any evidence of calf pain suggesting DVT. This all appears to be associated with his acute rash most likely secondary to eczema though there is minimal pruritus involving the progression of this rash. If he continues to have swelling and discomfort, venous Doppler study should be performed. He is on Lovenox for DVT prophylaxis. (4) Eczema: Status: Chronic Assessment and plan: Chronic and severe with intermittent prednisone pulse was given for treatment. He does also use topical steroids at times. (5) History of alcohol abuse: Status: Chronic Assessment and plan: Patient previously had a problem with alcohol abuse but present is not drinking. He also has had esophagitis from alcohol use and was on a PPI though this is questionable whether he is presently taking this. Will continue on PPI for now. Urine drug screen will be performed since patient is appearing to have some tolerance to narcotics though this may be associate with his inherited tendency for alcohol abuse. The patient denies illicit drug use. Presently he is on Dilaudid IV but will not be discharged on narcotics for pain control. History of Present Illness History of Present Illness Chief Complaint: 3-day history of progressive pain over both legs now with acute rash. 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 He does have a history of severe eczema was only treated with topical treatment and occasionally prednisone pulses. He states that his legs and feet began to have severe pain during the day and at night which progressed over the 3 days prior to presentation. The day of presentation patient had a sudden onset of a scaly rash with purple skin changes over his legs and top of his feet. He reported to ED for evaluation and lab showed a mildly elevated CRP but no increased WBC, a clean UA and slightly elevated lactate on VBG. The patient has had some respiratory symptoms recently and is getting over a cold. He does smoke tobacco intermittently and is on no inhalers. His pain in his legs got worse in the ED and he did not respond to IV morphine but was responding to IV Dilaudid. Ketorolac was given in the ED but will not be continued. Patient was complaining of swelling in his legs with a rash and this was new. He had no other active eczematous rashes other than confined to where his boots and socks were fitting over his legs. Patient is legs did have increased warmth over his getting rash and antibiotic were not initiated in the ED but would be initiated during observation. He is allergic to penicillin and sulfa, therefore clindamycin IV will be initiated. He does have significant skin breakdown. He has no fever or elevated WBC at this time and no systemic symptoms. Because of possibility of flare of eczema, Solu- Medrol high-dose will be given while observed. He will be placed in observation and is anticipated he is stable to be less than 48 hours. He is a full code. Review of Systems Narrative: 13 point review of system otherwise unrevealing or stable. PFSH All Active Problems Eczema (Chronic) Rash and nonspecific skin eruption (Acute) Bilateral lower extremity edema (Acute) Bilateral leg and foot pain (Acute) History of alcohol abuse (Chronic) Hx of upper gastrointestinal hemorrhage (Acute ~2014) Erosive esophagitis (Chronic) Epigastric pain (Acute) a. With nausea. History of dysphagia (Chronic) History of Surgical Procedure (Chronic) a. Removal of foreign bodies from the esophagus x [address] Owen Laughlin. Medical History (Updated 02/19/25 @ 02:57 by Antony Cee) GERD (gastroesophageal reflux disease) Surgical History History of esophageal surgery Social History Smoking/Tobacco Use Status: Current every day Tobacco Type: cigarettes Smoking packs per day: 0 Smoking cigarettes per day: 0.0 Years smoked: 0 Smoking pack- years: 0.00 Smoking risk assessment performed?: Yes Alcohol Intake: former Drug use: Never Substance use type: does not use Housing: house Do you feel safe in your relationship?: Yes Meds Allergies and Home Medications Allergies Allergy/AdvReac Type Severity Reaction Status Date / Time amoxicillin (Amoxicillin) Allergy Severe anaphylaxis Unverified 12/15/18 18:03 Penicillins Allergy Severe Anaphylaxis Unverified 12/15/18 18:03 Sulfa (Sulfonamide Allergy Severe anaphylaxis Unverified 12/15/18 18:03 Antibiotics) Home Medications ?Medication ?Instructions ?Recorded ?Confirmed ?Type pantoprazole 20 mg tablet,delayed 20 mg PO DAILY #10 t abs 04/03/18 06/08/18 Rx release Exam Narrative Exam Narrative: General: Patient is moderately obese but mesomorphic, alert and oriented x 3 and slightly sedated from his IV Dilaudid at the time of my interview. He is in no acute distress when his legs are not being palpated. HEENT: Normocephalic, eyes with pupils equal and reactive to light symmetrically, extraocular movement intact and sclera anicteric. Oropharynx with moist mucosa and fair dentition. Neck: Supple without JVD. Back: Stooped posture without CVA tenderness. Lungs: Bronchovesicular breath sound diffusely with occasional crackle but no focalizing. No rales. No expiratory wheeze. Heart: Regular rate and rhythm with no murmurs gallops appreciated. Abdomen: Obese contour, soft and nontender to palpation with no palpable hepatosplenomegaly. Bowel sounds positive in all quadrants. Genitalia/rectal: Exam deferred. Extremities: Upper extremities normal with good right radial pulses. Lower extremities with erythematous scaly and slightly ulcerating rash over both legs from just below the knee down over the foot not involving the soles. There is increased warmth to touch. He is tender to touch. There is moderate nonpitting edema. He has strong pulses over his ankles and feet. Good capillary refill. There is no clubbing or cyanosis. The rash of his legs has nonblanching and blanching erythema but no true petechiae or purpura. Skin: Mild eczema over the hands with rash over the legs as described. Normal color, warm and dry. Neuro: Cranial nerves II through XII grossly intact, no focalized motor deficits and no tremor. Psych: Flattened affect with normal mood. No abnormal thought processes. Remote and recent memory intact. Results Labs 02/19/25 06:25 02/19/25 06:25 Labs: Laboratory Results - last 24 hr 02/19/25 02/19/25 00:38 01:10 WBC 6.79 RBC 5.55 Hgb 17.2 Hct 50.4 H MCV 91 MCH 31.0 MCHC 34.1 RDW 12.7 Plt Count 244 MPV 8.4 Immature Gran % 0.3 Neutrophils % 60.2 Lymphocytes % 20.5 Monocytes % 10.9 Eosinophils % 7.5 Basophils % 0.6 Nucleated RBC % 0.0 Absolute Neutrophils 4.09 Absolute Lymphocytes 1.39 Absolute Monocytes 0.74 Absolute Eosinophils 0.51 Absolute Basophils 0.04 ESR 5 PT 10.1 INR 1.0 APTT 26.1 VBG pH 7.35 VBG pCO2 55 H VBG pO2 36 VBG HCO3 30 H VBG Total CO2 26 VBG O2 Saturation 63 VBG Base Excess 4 H VBG Lactate 2.5 H* Sodium 144 Potassium 3.2 L Chloride 104 Carbon Dioxide 31.9 Anion Gap 8.1 BUN 7 Creatinine 0.9 Est GFR (CKD-EPI 2020) 110.73 Glucose 74 Calcium 8.7 Magnesium 2.1 Total Bilirubin 0.2 AST 29 ALT 19 Alkaline Phosphatase 121 H C-Reactive Protein 1.20 H Total Protein 7.3 Albumin 3.3 L Urine Color Yellow Urine Clarity Clear Urine pH 5.5 Ur Specific [place] 1.010 Urine Protein Negative Urine Ketones Negative Urine Blood Negative Urine Nitrite Negative Urine Bilirubin Negative Urine Urobilinogen 0.2 Ur Leukocyte Esterase Negative Urine Glucose Negative Last Vital Signs Temp 36.5 C 02/19/25 01:28 Pulse 82 02/19/25 01:28 Resp 18 02/19/25 01:28 BP 143/89 H 02/19/25 01:28 Pulse Ox 99 02/19/25 01:28 PAWSS Have you Been Recently Intoxicated or Drunk Within the Last 30 days?: No Have you Ever Experienced Previous Episodes of Alcohol Withdrawal?: No Have you ever Experienced Withdrawal Seizures?: No Have you ever Experienced Delirium Tremens(DT)s?: No Have you ever undergone Alcohol Rehabilitation Treatment (i.e, inpt ot outpatient treatment programs)?: No Have you ever Experienced Blackouts?: No Have you ever Combined Alcohol with other Downers within the last 90 days?: No Have you ever Combined Alcohol with any other Substance of Abuse during the last 90 days?: No Positive Blood Alcohol level on Presentation? [PCS.BAL]: Unable to Obtain Evidence of Increased Autonomic Activity (i.e. HR>120, tremor, sweating, agitation, nausea)?: No Result: 0 Time Spent Time spent with Patient: 55-74 minutes Time was spent: preparing to see the patient(eg.review tests), obtaining and/or reviewing separately otained hiistory, ordering medications,tests, procedures, indepentently interpreting results and care coordination
--- NOTE | 2025-02-19 03:36 | W.PC.ACHO ---
Registration Status: ADM MARCI Primary Language: Preferred Language: Gabonese ED Information & Data Chief Complaint RashLesion 02/18/25 23:59 Chief Complaint RashLesion 02/18/25 23:46 Triage Note Three days ago bilateral 02/18/25 23:46 foot pain soreness that continued to worsen today nails are yellow and bilateral lower legs are purple and peeling. Medical / Surgical History (Last Reviewed 02/19/25 @ 02:25 by Antony Cee) GERD (gastroesophageal reflux disease) (Last Reviewed 02/19/25 @ 02:25 by Antony Cee) History of esophageal surgery Most Recent Vital Signs Temperature 36.5 C 02/19/25 01:28 Temperature Source Oral 02/19/25 01:28 Pulse 73 02/19/25 03:10 Respiratory Rate 18 02/19/25 01:28 Blood Pressure 137/83 02/19/25 03:01 Blood Pressure Mean 98 02/19/25 03:01 Blood Pressure Position Sitting 02/18/25 23:46 Pulse Oximetry 96 02/19/25 03:10 Oxygen Delivery Method Room Air 02/19/25 01:28 Oxygen Flow Rate 0 02/19/25 01:28 Pain Level 3 02/19/25 03:20 Allergies amoxicillin (Amoxicillin) Allergy (Severe, Unverified 12/15/18 18:03) anaphylaxis Penicillins Allergy (Severe, Unverified 12/15/18 18:03) Anaphylaxis Sulfa (Sulfonamide Antibiotics) Allergy (Severe, Unverified 12/15/18 18:03) anaphylaxis Active Medications Generic Name Dose Route Start Last Admin Trade Name Freq PRN Reason Stop Dose Admin Sodium Chloride 0 ml 02/19/25 00:19 02/19/25 01:49 Normal Saline Flush 10 Ml Syr IVP 10 ml PRN PRN Administration IV IV Catheter Type [Right Peripheral IV Antecubital] IV Catheter Gauge [Right 20 Antecubital] Diet Orders Category Date Time Status Regular/Normal [DIET] Nutrition 02/19/25 Breakfast Active Diagnostics 02/19/25 02/19/25 02/19/25 Range/Units 05:35 03:35 03:05 WBC Pending (4.4-10.8) 10^3/uL RBC Pending (4.36-5.78) 10^6/uL Hgb Pending (13.5-17.5) g/dL Hct Pending (40.0-50.0) % MCV Pending (80-95) fL MCH Pending (27.0-33.0) pg MCHC Pending (32.0-36.0) % RDW Pending (11.8-14.1) % Plt Count Pending (130-400) 10^3/uL MPV Pending (8.0-11.0) fL Immature Gran % % Neutrophils % % Lymphocytes % % Monocytes % % Eosinophils % % Basophils % % Nucleated RBC % (0.0-0.3) % Absolute Neutrophils (1.2-6.7) 10^3/uL Absolute Lymphocytes (1.2-3.4) 10^3/uL Absolute Monocytes (0.1-0.8) 10^3/uL Absolute Eosinophils (0.0-0.7) 10^3/uL Absolute Basophils (0.0-0.2) 10^3/uL ESR (0-15) mm/hr PT Pending (9.1-11.1) sec INR Pending (0.9-1.1) APTT (20.6-30.2) sec VBG pH (7.31-7.41) VBG pCO2 (41-51) mmHg VBG pO2 mmHg VBG HCO3 (23-28) mmol/L VBG Total CO2 (24-29) mmol/L VBG O2 Saturation % VBG Base Excess (-2-3) mmol/L VBG Lactate (<or=2.0) mmol/L Sodium Pending (136-145) mmol/L Potassium Pending (3.5-5.1) mmol/L Chloride Pending (98-107) mmol/L Carbon Dioxide Pending (21.0-32.0) mmol/L Anion Gap Pending (3-11) mmol/L BUN Pending (7-18) mg/dL Creatinine Pending (0.70-1.30) mg/dL Est GFR (CKD-EPI 2020) Pending (mL/min/1.73m2) Glucose Pending (74-106) mg/dL Calcium Pending (8.5-10.1) mg/dL Magnesium Pending (1.8-2.4) mg/dL Total Bilirubin Pending (0.2-1.0) mg/dL AST Pending (15-37) U/L ALT Pending (16-63) U/L Alkaline Phosphatase Pending (46-116) U/L C-Reactive Protein (<or=0.5) mg/dL Total Protein Pending (6.4-8.2) g/dL Albumin Pending (3.4-5.0) g/dL TSH Pending Urine Color (Yellow) Urine Clarity (Clear) Urine pH (5-8) Ur Specific Gonzales (1.005-1.025) Urine Protein (Neg-Trace) mg/dL Urine Ketones (Negative) mg/dL Urine Blood (Negative) Urine Nitrite (Negative) Urine Bilirubin (Negative) Urine Urobilinogen (Up to 0.2) mg/dL Ur Leukocyte Esterase (Negative) Urine Glucose (Negative) mg/dL COVID-19 Source Pending SARS-CoV-2 (PCR) Pending Influenza Type A (PCR) Pending Influenza Type B (PCR) Pending RSV (PCR) Pending 02/19/25 02/19/25 Range/Units 01:10 00:38 WBC 6.79 (4.4-10.8) 10^3/uL RBC 5.55 (4.36-5.78) 10^6/uL Hgb 17.2 (13.5-17.5) g/dL Hct 50.4 H (40.0-50.0) % MCV 91 (80-95) fL MCH 31.0 (27.0-33.0) pg MCHC 34.1 (32.0-36.0) % RDW 12.7 (11.8-14.1) % Plt Count 244 (130-400) 10^3/uL MPV 8.4 (8.0-11.0) fL Immature Gran % 0.3 % Neutrophils % 60.2 % Lymphocytes % 20.5 % Monocytes % 10.9 % Eosinophils % 7.5 % Basophils % 0.6 % Nucleated RBC % 0.0 (0.0-0.3) % Absolute Neutrophils 4.09 (1.2-6.7) 10^3/uL Absolute Lymphocytes 1.39 (1.2-3.4) 10^3/uL Absolute Monocytes 0.74 (0.1-0.8) 10^3/uL Absolute Eosinophils 0.51 (0.0-0.7) 10^3/uL Absolute Basophils 0.04 (0.0-0.2) 10^3/uL ESR 5 (0-15) mm/hr PT 10.1 (9.1-11.1) sec INR 1.0 (0.9-1.1) APTT 26.1 (20.6-30.2) sec VBG pH 7.35 (7.31-7.41) VBG pCO2 55 H (41-51) mmHg VBG pO2 36 mmHg VBG HCO3 30 H (23-28) mmol/L VBG Total CO2 26 (24-29) mmol/L VBG O2 Saturation 63 % VBG Base Excess 4 H (-2-3) mmol/L VBG Lactate 2.5 H* (<or=2.0) mmol/L Sodium 144 (136-145) mmol/L Potassium 3.2 L (3.5-5.1) mmol/L Chloride 104 (98-107) mmol/L Carbon Dioxide 31.9 (21.0-32.0) mmol/L Anion Gap 8.1 (3-11) mmol/L BUN 7 (7-18) mg/dL Creatinine 0.9 (0.70-1.30) mg/dL Est GFR (CKD-EPI 2020) 110.73 (mL/min/1.73m2) Glucose 74 (74-106) mg/dL Calcium 8.7 (8.5-10.1) mg/dL Magnesium 2.1 (1.8-2.4) mg/dL Total Bilirubin 0.2 (0.2-1.0) mg/dL AST 29 (15-37) U/L ALT 19 (16-63) U/L Alkaline Phosphatase 121 H (46-116) U/L C-Reactive Protein 1.20 H (<or=0.5) mg/dL Total Protein 7.3 (6.4-8.2) g/dL Albumin 3.3 L (3.4-5.0) g/dL TSH Urine Color Yellow (Yellow) Urine Clarity Clear (Clear) Urine pH 5.5 (5-8) Ur Specific Gonzales 1.010 (1.005-1.025) Urine Protein Negative (Neg-Trace) mg/dL Urine Ketones Negative (Negative) mg/dL Urine Blood Negative (Negative) Urine Nitrite Negative (Negative) Urine Bilirubin Negative (Negative) Urine Urobilinogen 0.2 (Up to 0.2) mg/dL Ur Leukocyte Esterase Negative (Negative) Urine Glucose Negative (Negative) mg/dL COVID-19 Source SARS-CoV-2 (PCR) Influenza Type A (PCR) Influenza Type B (PCR) RSV (PCR) Intake and Output - 24 Hour Total 02/18/25 23:33 thru 02/18/25 23:46 Weight 103 kg Falls Risk Assessment History of Falls No History 02/19/25 00:05 Contributing Factors No Factors 02/19/25 00:05 Ambulatory Aids Independent 02/19/25 00:05 Tubes/Lines None 02/19/25 00:05 Gait Evaluation No gait disturbance 02/19/25 00:05 Cognition No cognitive impairment 02/19/25 00:05 Fall Total Score 0 02/19/25 00:05 Level of Risk Standard/Low Risk 02/19/25 00:05 Problems (Last Reviewed 02/19/25 @ 02:25 by Antony Cee) Eczema (Chronic) Rash and nonspecific skin eruption (Acute) Bilateral lower extremity edema (Acute) Bilateral leg and foot pain (Acute) History of alcohol abuse (Chronic) v v v v v v v v v Sending and/or Receiving Nurses: Please use comment section below to note any information pertinent to the patient hand-off not included above. Information / Comments: Report received from ED. On RA. B/L LE rash present. Ind. Report received from: Carmine MALDONADO RN
[2025-02-19] MEDS: methylPREDNISolone SUCC 125 MG VIAL IVP ×3 (03:52→19:44)
[2025-02-19 06:49] LABS: HCT 46.2 % (40.0-50.0); HGB 15.7 g/dL (13.5-17.5); MCH 30.7 pg (27.0-33.0); MCHC 34.0 % (32.0-36.0); MCV 90 fL (80-95); MPV 8.5 fL (8.0-11.0); Platelet Count 228 10^3/uL (130-400); RBC 5.11 10^6/uL (4.36-5.78); RDW 12.8 % (11.8-14.1); RDW-SD 42.5 fL; WBC 4.10 10^3/uL (4.4-10.8)
[2025-02-19 07:05] LABS: ALT 18 U/L (16-63); AST 16 U/L (15-37); Albumin 2.9 g/dL (3.4-5.0); Alkaline Phosphatase 101 U/L (46-116); Anion Gap 9.8 mmol/L (3-11); BUN 6 mg/dL (7-18); Bilirubin, Total 0.2 mg/dL (0.2-1.0); CO2 27.2 mmol/L (21.0-32.0); Calcium 8.0 mg/dL (8.5-10.1); Chloride 104 mmol/L (98-107); Estimated GFR 119.46 (mL/min/1.73m2); Glucose 96 mg/dL (74-106); Magnesium 1.8 mg/dL (1.8-2.4); Potassium 4.0 mmol/L (3.5-5.1); Sodium 141 mmol/L (136-145); Total Protein 6.5 g/dL (6.4-8.2)
[2025-02-19 07:09] LABS: INR 1.0 (0.9-1.1); Prothrombin Time 10.4 sec (9.1-11.1)
[2025-02-19 07:12] LABS: TSH (W/Ref FT4) 1.92 uIU/mL (0.36-3.74)
[2025-02-19] MEDS: Pantoprazole 40 MG TABCR PO (08:27)
[2025-02-19] MEDS: CLINDAMYCIN 600 MG/50 ML BAG 100 MG IVPB ×3 (09:04→19:44)
[2025-02-19 09:41] LABS: COVID-19 PCR Negative (Negative); RSV PCR Negative (Negative)
--- NOTE | 2025-02-19 10:09 | INITIAL_ITS ---
Date of service: 02/19/25 Time of Service: 10:09 Care Management Initial Assmt Initial Assessment Reason for Hospitalization: Painful rash bilateral legs and feet, eczema Functional Status/Living Situation Patient Presentation: Ed was sitting up in bed when CM met with him. He stated that he is doing ok, but is still in a lot of pain from his legs, which is impacting his mobility. 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 He has one daughter who is seven. He lives alone, but has support from his family (mother, siblings), friends, and his girlfriend. Ed stated that he does not currently have insurance or a PCP; CM sent a referral to [facility] for support with insurance. He stated that he used to be an established patient at [facility], and plans to contact them to re establish care. CM discussed connecting him with the corporation lawyer provider, but he declined, stating that he prefers to re establish care with [facility]. Per report, he is being treated with high dose steroids, and his pain management will be transitioned to oral medication. CM will continue to follow. Town of Residence: [facility] Resides with: Alone Significant Other/Family: Local Natural Supports: Mother, Raquel S/OKeisha Employment Status: Employed Instrumental Activities of Daily Living (ADLs): Independent Medications Medication Management: No Issues/Barriers identified Advance Directives Advance Directives: Do you have an Advance Directive: N , 22:49 AD On File at [facility]: N 01/15/13, 22:49 Date Asked 02/19/25 Today, 03:11 AD Date Reviewed COLST On File at [facility] COLST Date Scanned Code Status Resuscitation Status Full Code Insurance Coverage/Financial Issues Insurance: Self pay; CM sent a referral to [facility] Care Team Visit Care Team Role Provider Type Yessi Glass, NAYE NURSE PRACTITIONER Local No Primary Care Provider NON-[facility] STAFF PHYSICIAN Caleb Krishna MD Emergency Provider [facility] STAFF PHYSICIAN Antony Cee Admit Provider NON-[facility] STAFF PHYSICIAN Attending Provider Discharge Potential Discharge Needs: PCP F/U Appt (No PCP listed; pt stated that he will reestablish care with [facility]) Anticipated Barriers to Discharge: None Identified Patient/Family Education Needs: Review discharge instructions, discuss Ask Me Three Transportation: Private vehicle Plan: Anticipate Osmani will return home once medically cleared. He will follow up with his previous PCP and his discharge plan of care. He will transport home via private vehicle by family. CM will continue to follow. Social Determinants of Health Screening Social Determinants of health last assessed in clinic: 02/19/25 Will the Patient Participate in the Screening?: Yes Do you worry about having a steady place to live?: no Problems where you live: no known problems In the past 12 months, have you had to go without electric, gas, oil or water in your home?: no 1. Within the past 12 months, we worried whether our food would run out before we got money to buy more.: Don't know/refused 2. Within the past 12 months, the food we bought just didn't last and we didn't have money to get more.: Don't know/refused Has lack of transportation kept you from medical appointments or from doing things needed for daily living?: no Has anyone in your life made you feel unsafe or unsupported?: no How hard is it for you to pay for the very basics like food, housing, medical care, and heating? Would you say it is:: Not hard at all Do you want help finding or keeping work or a job?: I do not need or want help If for any reason you need help with day-to-day activities such as bathing, preparing meals, shopping, managing finances, etc., do you get the help you need?: I don?t need any help How often do you feel lonely or isolated from those around you?: Never Do you speak a language other than Malay at home?: No Does the patient want assistance with any of the above?: No Health Related Social Needs Health related social needs details: none PFSH All Active Problems Eczema (Chronic) Rash and nonspecific skin eruption (Acute) Bilateral lower extremity edema (Acute) Bilateral leg and foot pain (Acute) History of alcohol abuse (Chronic) Hx of upper gastrointestinal hemorrhage (Acute ~2013) Erosive esophagitis (Chronic) Epigastric pain (Acute) a. With nausea. History of dysphagia (Chronic) History of Surgical Procedure (Chronic) a. Removal of foreign bodies from the esophagus x [address] Owen Laughlin. Medical History (Updated 02/19/25 @ 02:57 by Antony Cee) GERD (gastroesophageal reflux disease) Surgical History History of esophageal surgery Social History Smoking/Tobacco Use Status: Current every day Tobacco Type: cigarettes Smoking packs per day: 0 Smoking cigarettes per day: 0.0 Years smoked: 0 Smoking pack- years: 0.00 Smoking risk assessment performed?: Yes Alcohol Intake: former Drug use: Never Substance use type: does not use Housing: house Do you feel safe in your relationship?: Yes
[2025-02-19 13:34] LABS: Cannabinoids THC Negative (Negative); METHADONE URINE SCREEN Negative (Negative)
[2025-02-20] MEDS: CLINDAMYCIN 600 MG/50 ML BAG 100 MG IVPB ×4 (02:44→21:30)
[2025-02-20] MEDS: methylPREDNISolone SUCC 125 MG VIAL IVP ×2 (02:44→11:22)
[2025-02-20 04:25] VITALS: BP 130/70; PULSE 72; RESP 15; TEMP 36.6; O2SAT 95
[2025-02-20] MEDS: HYDROmorphone 2 MG/ML SYR 1 MG IVP ×5 (04:27→20:38)
[2025-02-20 06:59] LABS: HCT 47.0 % (40.0-50.0); HGB 16.0 g/dL (13.5-17.5); MCH 31.1 pg (27.0-33.0); MCHC 34.0 % (32.0-36.0); MCV 91 fL (80-95); MPV 8.7 fL (8.0-11.0); Platelet Count 279 10^3/uL (130-400); RBC 5.14 10^6/uL (4.36-5.78); RDW 12.9 % (11.8-14.1); RDW-SD 43.2 fL; WBC 11.45 10^3/uL (4.4-10.8)
[2025-02-20 07:22] LABS: ALT 15 U/L (16-63); AST 11 U/L (15-37); Albumin 2.9 g/dL (3.4-5.0); Alkaline Phosphatase 123 U/L (46-116); Anion Gap 11.7 mmol/L (3-11); BUN 9 mg/dL (7-18); Bilirubin, Total 0.2 mg/dL (0.2-1.0); CO2 25.3 mmol/L (21.0-32.0); Calcium 8.8 mg/dL (8.5-10.1); Chloride 104 mmol/L (98-107); Estimated GFR 97.58 (mL/min/1.73m2); Glucose 189 mg/dL (74-106); Magnesium 2.1 mg/dL (1.8-2.4); Potassium 3.4 mmol/L (3.5-5.1); Sodium 141 mmol/L (136-145); Total Protein 6.8 g/dL (6.4-8.2)
[2025-02-20 07:34] VITALS: BP 124/70; PULSE 80; RESP 16; TEMP 36.7; O2SAT 93
[2025-02-20] MEDS: Normal Saline Flush 10 ML SYR IVP ×4 (08:05→20:39)
[2025-02-20] MEDS: Pantoprazole 40 MG TABCR PO (08:05)
--- NOTE | 2025-02-20 10:28 | W.PM.PROGNOT ---
Date of Service Date of service: 02/20/25 Time of Service: 14:12 Assessment and Plan Assessment and plan (1) Rash and nonspecific skin eruption: Start date: 02/19/25 Status: Acute Assessment and plan: History of fairly severe eczema not on treatment but use to have triamcinolone topical with presentation postural edema development being on his legs all day at work and subsequent sudden onset rash which appears to be in the distribution of his socks and boots with a change in work status recently being on the ground with more standing and stress on his lower extremities. He also sweats when he is working in his boots. Long-term if this rash persists he may need punch biopsy for diagnosis. This can be done as an outpatient. Wound care was consulted but there is no indication for surgical consultation at this time. Outpatient dermatology Ongoing IV clindamycin Ongoing oral steroids WBC 11.45- 11.75 from < 10 on 02/18 Hx of eczema and used triacinolone cream in the past Ongoing TP triamcinolone Labs in AM (2) Bilateral lower extremity edema: Start date: 02/19/25 Status: Acute Assessment and plan: As above Impaired ambulation but able to transfer to around the time pain Rx is given (3) Bilateral leg and foot pain: Start date: 02/19/25 Status: Acute Assessment and plan: Ongoing pain management : Ongoing PRN Ketorolac, APAP, hudromorphone consider bilteral lower ext US if ongoing pain and edema as per point 1 (4) Eczema: Status: Chronic Assessment and plan: Chronic and severe with skin breakdown - ongoing intermittent prednisone pulse He does also use topical steroids at times but ran out of triamcinolone (5) History of alcohol abuse: Status: Chronic Assessment and plan: Ethyl pending [place] asswssement The patient denies illicit drug use. Presently he is on Dilaudid IV but will not be discharged on narcotics for pain control. discussed with Dr Del Rosario Subjective Subjective Patient reports: still having pain (slightly improved ), tolerating liquids well, tolerating a regular diet, voiding w/o difficulty, bowel movement and other; denies diarrhea, blood in stool, nausea, vomiting, shortness of breath or fever Exam Narrative Exam Narrative: alert and oriented X4 , no focal neurological deficit, moves all 4 ext. , unlabored respiration clear breath sounds , S1, S2 regular , abdomen is non-acute, no CVA tenderness, bilateral LEs swollen, dry flaky skin, with minimal drainage to right lower leg, left lower leg with dry open skin crease, no opened wound to sole or toes Objective Last Vital Signs Temp 36.7 C 02/20/25 07:34 Pulse 80 02/20/25 07:34 Resp 16 02/20/25 07:34 BP 124/70 02/20/25 07:34 Pulse Ox 93 02/20/25 07:34 Laboratory Results - last 24 hr 02/19/25 02/20/25 01:10 06:30 WBC 11.45 H RBC 5.14 Hgb 16.0 Hct 47.0 MCV 91 MCH 31.1 MCHC 34.0 RDW 12.9 Plt Count 279 MPV 8.7 Sodium 141 Potassium 3.4 L Chloride 104 Carbon Dioxide 25.3 Anion Gap 11.7 H BUN 9 Creatinine 1.0 Est GFR (CKD-EPI 2020) 97.58 Glucose 189 H Calcium 8.8 Magnesium 2.1 Total Bilirubin 0.2 AST 11 L ALT 15 L Alkaline Phosphatase 123 H Total Protein 6.8 Albumin 2.9 L Urine Opiates Screen Negative Urine Methadone Screen Negative Ur Barbiturates Screen Negative Ur Tricyclics Screen Negative Ur Amphetamines Screen Negative U Benzodiazepines Scrn Negative Urine Cocaine Screen Negative Ur THC Screen Negative PAWSS Have you Been Recently Intoxicated or Drunk Within the Last 30 days?: No Have you Ever Experienced Previous Episodes of Alcohol Withdrawal?: No Have you ever Experienced Withdrawal Seizures?: No Have you ever Experienced Delirium Tremens(DT)s?: No Have you ever undergone Alcohol Rehabilitation Treatment (i.e, inpt ot outpatient treatment programs)?: No Have you ever Experienced Blackouts?: No Have you ever Combined Alcohol with other Downers within the last 90 days?: No Have you ever Combined Alcohol with any other Substance of Abuse during the last 90 days?: No Positive Blood Alcohol level on Presentation? [PCS.BAL]: No Evidence of Increased Autonomic Activity (i.e. HR>120, tremor, sweating, agitation, nausea)?: No Result: 0 Time Spent with Patient Time Spent with Patient: >50 minutes Time was spent: preparing to see the patient(eg.review tests), obtaining and/or reviewing separately otained hiistory, ordering medications,tests, procedures, referring, communicating with other health director of home care hospice, indepentently interpreting results, counseling the patient, care coordination and other
[2025-02-20 10:49] VITALS: BP 141/84; PULSE 96; RESP 18; TEMP 36.8; O2SAT 93
[2025-02-20] MEDS: Potassium Chloride 20 MEQ TABCR 40 MEQ PO (12:13)
[2025-02-20] MEDS: Ketorolac 15 MG/ML VIAL IVP ×2 (12:15→20:38)
[2025-02-20] MEDS: Triamcinolone 0.1% CR 15 GM TUBE TP ×2 (14:19→20:38)
[2025-02-20] MEDS: Lactobacillus Acidophilus CAP 1 CAP PO ×2 (14:19→20:37)
[2025-02-20 14:28] VITALS: BP 144/90; PULSE 77; RESP 16; TEMP 36.6; O2SAT 95
[2025-02-20 17:14] LABS: Lab Add On Test DONE
[2025-02-20 20:25] VITALS: BP 142/80; PULSE 80; RESP 15; TEMP 36.6; O2SAT 96
[2025-02-20] MEDS: Acetaminophen 325 MG TAB 650 MG PO (20:37)
[2025-02-20] MEDS: diphenhydrAMINE 25 MG CAP PO (20:37)
[2025-02-21 00:34] VITALS: BP 120/81; PULSE 65; RESP 15; TEMP 35.9; O2SAT 95
[2025-02-21] MEDS: Acetaminophen 325 MG TAB 650 MG PO ×4 (00:50→20:20)
[2025-02-21] MEDS: HYDROmorphone 2 MG/ML SYR 1 MG IVP ×3 (00:51→10:43)
[2025-02-21] MEDS: CLINDAMYCIN 600 MG/50 ML BAG 100 MG IVPB ×4 (02:37→20:21)
[2025-02-21] MEDS: Ketorolac 15 MG/ML VIAL IVP ×3 (02:38→20:20)
[2025-02-21 04:07] VITALS: PULSE 72; RESP 15; O2SAT 98
[2025-02-21 06:45] LABS: Abs Immature Grans 0.06 10^3/uL (0.0-0.06); HCT 45.7 % (40.0-50.0); HGB 15.5 g/dL (13.5-17.5); Immature Grans % 0.5 %; MCH 31.7 pg (27.0-33.0); MCHC 33.9 % (32.0-36.0); MCV 94 fL (80-95); MPV 8.5 fL (8.0-11.0); Platelet Count 233 10^3/uL (130-400); RBC 4.89 10^6/uL (4.36-5.78); RDW 13.0 % (11.8-14.1); RDW-SD 44.8 fL; WBC 11.71 10^3/uL (4.4-10.8)
[2025-02-21 06:59] LABS: Anion Gap 10.1 mmol/L (3-11); BUN 19 mg/dL (7-18); CO2 26.9 mmol/L (21.0-32.0); Calcium 8.2 mg/dL (8.5-10.1); Chloride 105 mmol/L (98-107); Estimated GFR 97.58 (mL/min/1.73m2); Glucose 134 mg/dL (74-106); Potassium 3.1 mmol/L (3.5-5.1); Sodium 142 mmol/L (136-145)
[2025-02-21 07:23] VITALS: BP 119/67; PULSE 67; RESP 16; TEMP 36.8; O2SAT 96
[2025-02-21] MEDS: Lactobacillus Acidophilus CAP 1 CAP PO ×3 (08:14→20:19)
[2025-02-21] MEDS: predniSONE 20 MG TAB 40 MG PO (08:14)
[2025-02-21] MEDS: Normal Saline Flush 10 ML SYR IVP ×2 (08:14→21:00)
[2025-02-21] MEDS: Pantoprazole 40 MG TABCR PO (08:14)
[2025-02-21] MEDS: Triamcinolone 0.1% CR 15 GM TUBE TP ×3 (08:15→20:22)
[2025-02-21 10:57] VITALS: BP 130/78; PULSE 75; RESP 16; TEMP 36.3; O2SAT 95
--- NOTE | 2025-02-21 12:30 | PT.INIE ---
PT Notes Visit Reasons: Painful Rash Bilateral Legs and Feet, Eczema Physical Therapy Inpatient Initial Evaluation Date: 02/21/2025 Referring Doctor: Joyce Lau NP PT Orders: PT CONSULT: SAfety COnsult for D/C. Eval for Assistive Device Precautions: Fall. Standard. WBAT on B LE with AD. Patient Profile/Admitting Diagnosis: Osmani is a a 39-year-old male with history of ETOH use who was admitted for management of rashes and non-specific skin eruption, B LE edema, and B leg and feet pain, and eczema. PMHX: All Active Problems Eczema (Chronic) Rash and nonspecific skin eruption (Acute) Bilateral lower extremity edema (Acute) Bilateral leg and foot pain (Acute) History of alcohol abuse (Chronic) Hx of upper gastrointestinal hemorrhage (Acute ~2014) Erosive esophagitis (Chronic) Epigastric pain (Acute) a. With nausea.History of dysphagia (Chronic) History of Surgical Procedure (Chronic) a. Removal of foreign bodies from the esophagus x [address] Owen Laughlin. 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 Independent with all aspects of ADLs prior to surgery. Has family and friends who live close by. Equipment Owned/DME: None Subjective: Complained of pain at 7/10 but was willing to try out walking using the front-wheeled walker and bilateral supportive/post op shoes. Objective: General Observation: B legs and feet covered with supportive dressing. Patient resting in bed. Mental Status: Alert and awake for as to person, place, time, and purpose. Able to pay attention, focus, and respond appropriately. Pain: As above Vital Signs: Closely monitored by nursing staff ROM: Right Lower Extremity: Hip flexion WFL. Hip abduction WFL. Knee flexion WFL. Ankle dorsiflexion WFL. Ankle plantarflexion WFL. Left Lower Extremity: Hip flexion WFL. Hip abduction WFL. Knee flexion WFL. Ankle dorsiflexion WFL. Ankle plantarflexion WFL. Strength: Right Lower Extremity: Hip flexors 5/5. Hip abductors 5/5. Knee flexors 5/5. Knee extensors 5/5. Ankle dorsiflexors 4/5. Ankle plantarflexors 4/5. Left Lower Extremity: Hip flexors 5/5. Hip abductors 5/5. Knee flexors 5/5. Knee extensors 5/5. Ankle dorsiflexors 4/5. Ankle plantarflexors 4/5. Bed Mobility/Transfers: Rolling independent Supine to sit independent Sit to supine independent Sit to stand independent with FWW and supportive footwear on B sides Stand to sit independent with FWW and supportive footwear on B sides Bed to reclining chair independent with FWW and supportive footwear on B sides Reclining chair to bed independent with FWW and supportive footwear on B sides Gait: Covered about 100 feet of level surface ambulation in the hallway using FWW and supportive footwear to B sides with pain down to 5/10 with patient verbalizing good support form shoes. No LOB. No SOB. Supervision only. Balance: Static Sitting: Normal Dynamic Sitting: Normal Static Standing: Good Dynamic Standing: Fair Special Tests: Mobility Limitations Standardized Measure [facility] 6 clicks Basic Mobility Inpatient Short Form: Raw Score: 23 CMS Score: 11% deficit Informed Consent/Education: Patient was instructed in purpose of PT consult and plan of care. Agreeable to proceed with established PT POC to achieve personal goals. Assessment: Patient's tolerance to and stability of walking was significantly improved with issuance of properly fitted walker and appropriate size supportive/post op shoes to B sides. Pain is the main limiting factor to functional performance but has been managed by medication intake. Patient presents with clinical signs and symptoms consistent with current/admitting diagnoses that have resulted to mobility limitations, gait instability, generalized weakness, and overall ADL decline as demonstrated by the following impairment level findings: 1. Decreased strength to B ankle major muscle groups 2. Impaired standing balance 3. Impaired activity tolerance 4. Pain in B legs and feet at 7/10 Impairments are contributing to the following functional limitations: 1. Difficulty with ambulation without assistive device and use of supportive post op shoes 2. Increased completion time for mobility ADL performance 3. Increased risk for falls 4. Difficulty with managing steps alone safely Patient is assessed as a [id number] low complexity based on the following: History: 39-year-old male with past medical history as indicated above Examination: Demonstrable impairment in strength, balance, and mobility level with underlying impairments and functional limitations as exhibited above as well as deficit score of 11% utilizing the [facility] Mobility Inpatient Short Form Presentation: Stable Decision Makin low complexity Goals: Goals X1 week 1. Independent gait on level surface with use of no device for at least 150 feet without report of pain 2. Independent stair negotiation while holding onto b rails for at least 6 steps without report of pain nor dyspnea Plan of Care/Treatment Plan: 1-2x/day, 7 days/week x 1 week. Plan of care has been reviewed with the [employer] providing the service under Physical Therapy direction. Initiate Physical Therapy intervention for pain management as needed, strengthening, bed mobility, transfers, gait, stairs, balance training, and use of assistive device. DISCHARGE RECOMMENDATIONS: PT to progress back to independent mobility level without AD TREATMENT CODE/TIME: 06297 x 27 minutes for 1 unit (15:05-15:32). Thank you for the opportunity to participate in the care of this patient. Dortohea Castillo PT, DPT, CLT [facility] [place], [place]
[2025-02-21 14:25] LABS: Lab Add On Test DONE
[2025-02-21] MEDS: Potassium Chloride 20 MEQ TABCR 40 MEQ PO (14:27)
--- NOTE | 2025-02-21 14:34 | PGE_ITS ---
Date of Service Date of service: 02/21/25 Time of Service: 14:35 Assessment and Plan Assessment and plan (1) Rash and nonspecific skin eruption: Start date: 02/19/25 Status: Acute Assessment and plan: History of fairly severe eczema not on treatment but use to have triamcinolone topical with presentation postural edema development being on his legs all day at work and subsequent sudden onset rash which appears to be in the distribution of his socks and boots with a change in work status recently being on the ground with more standing and stress on his lower extremities. He also sweats when he is working in his boots. Long-term if this rash persists he may need punch biopsy for diagnosis. This can be done as an outpatient. Wound care was consulted but there is no indication for surgical consultation at this time. Outpatient dermatology Ongoing IV clindamycin Wound culture growing minimal GPC Ongoing oral steroids WBC 11.75 from < 10 on 02/18 Hx of eczema Ongoing TP triamcinolone Labs in AM (2) Bilateral lower extremity edema: Start date: 02/19/25 Status: Acute Assessment and plan: As above Skin moisture and alexander wrap per nursing Impaired ambulation: PT consult (3) Bilateral leg and foot pain: Start date: 02/19/25 Status: Acute Assessment and plan: Ongoing pain management :transition to PRN oral hydromorphone and scheduled ketorolac and APAP- afebrile Bilteral lower ext US for ongoing pain and edema as per point 1 (4) Eczema: Status: Chronic Assessment and plan: Chronic and severe with skin breakdown - ongoing intermittent prednisone pulse He does also use topical steroids at times but ran out of triamcinolone (5) History of alcohol abuse: Status: Chronic Assessment and plan: Ethyl negative CIWA assessment stopped The patient denies illicit drug use. Presently he is on Dilaudid IV but will not be discharged on narcotics for pain control. discussed with Dr Del Rosario Subjective Subjective Patient reports: still having pain (slightly improved but still requires frequent IV pain meds ), tolerating liquids well, tolerating a regular diet, voiding w/o difficulty, bowel movement and other ( Night sweats, pain to feet impairing ambulation , will not be able to ambulate at home and be independent in ADL's); denies diarrhea, blood in stool, nausea, vomiting, shortness of breath or fever Exam Narrative Exam Narrative: alert and oriented X4 , no focal neurological deficit, moves all 4 ext. , unlabored respiration clear breath sounds , S1, S2 regular , abdomen is non- acute, no CVA tenderness, bilateral LEs swelling is improved , decreased dryness ALEXANDER wrap to feet with moisture applied by nursing - with imrpoved discomfort and less report of skin tightness, moves all 4 ext Objective Last Vital Signs Temp 36.3 C L 02/21/25 10:57 Pulse 75 02/21/25 10:57 Resp 16 02/21/25 10:57 BP 130/78 02/21/25 10:57 Pulse Ox 95 02/21/25 10:57 Laboratory Results - last 24 hr 02/20/25 02/21/25 06:30 06:30 WBC 11.71 H RBC 4.89 Hgb 15.5 Hct 45.7 MCV 94 MCH 31.7 MCHC 33.9 RDW 13.0 Plt Count 233 MPV 8.5 Immature Gran % 0.5 Neutrophils % 83.7 Lymphocytes % 9.1 Monocytes % 6.4 Eosinophils % 0.1 Basophils % 0.2 Nucleated RBC % 0.0 Absolute Neutrophils 9.80 H Absolute Lymphocytes 1.07 L Absolute Monocytes 0.75 Absolute Eosinophils 0.01 Absolute Basophils 0.02 Sodium 142 Potassium 3.1 L Chloride 105 Carbon Dioxide 26.9 Anion Gap 10.1 BUN 19 H Creatinine 1.0 Est GFR (CKD-EPI 2020) 97.58 Glucose 134 H Calcium 8.2 L Ethyl Alcohol < 3.0 Add-On Test Request DONE DONE PAWSS Have you Been Recently Intoxicated or Drunk Within the Last 30 days?: No Have you Ever Experienced Previous Episodes of Alcohol Withdrawal?: No Have you ever Experienced Withdrawal Seizures?: No Have you ever Experienced Delirium Tremens(DT)s?: No Have you ever undergone Alcohol Rehabilitation Treatment (i.e, inpt ot outpatient treatment programs)?: No Have you ever Experienced Blackouts?: No Have you ever Combined Alcohol with other Downers within the last 90 days?: No Have you ever Combined Alcohol with any other Substance of Abuse during the last 90 days?: No Positive Blood Alcohol level on Presentation? [PCS.BAL]: No Evidence of Increased Autonomic Activity (i.e. HR>120, tremor, sweating, agitation, nausea)?: No Result: 0 Time Spent with Patient Time Spent with Patient: >50 minutes Time was spent: preparing to see the patient(eg.review tests), obtaining and/or reviewing separately otained hiistory, ordering medications,tests, procedures, referring, communicating with other health hospice spiritual care coordinator, indepentently interpreting results, counseling the patient, care coordination and other
[2025-02-21 14:38] LABS: Magnesium 2.1 mg/dL (1.8-2.4)
[2025-02-21 15:07] VITALS: BP 129/77; PULSE 75; RESP 17; TEMP 36.7; O2SAT 96
--- NOTE | 2025-02-21 16:14 | CMPROGNOTE_ITS ---
Date of service: 02/21/25 Time of Service: 11:30 Care Management Progress Note Progress Note Text Progress Note Text: Ed was sitting up in bed, watching TV, when CM met with him today. He was very pleasant with CM. Both of his legs were wrapped with Rishi and are painful. He is receiving IV antibiotics, PO prednisone, and has been changed from IVP to PO pain medication today. Osmani is aware that these changes are in preparation for his discharge. PT is recommending outpatient PT. Ed is unsure that he will be able to pay for this. He was given a walker and support shoes. [facility] was notified of the referral sent yesterday. He did not qualify for Medicaid, but they are pursuing options from [facility]. Ed was also given the patient assistance packet, which he has already filled out. Ed reiterated that he would like to f/u with [facility]. He was made aware that he would have to fill out the new patient paper work and would have to wait for an appointment. He stated understanding. He was not interested in the t-doc appointment. Discharge Potential Discharge Needs: PCP F/U Appt Anticipated Barriers to Discharge: None Identified Patient/Family Education Needs: Review discharge instructions, discuss Ask Me Three Transportation: Private vehicle Plan: Ed will likely be discharged home tomorrow with no new home care services. He was encouraged to engage with [facility] to get himself secured as a patient. Ed will be given some supplies for dressing changes and will transport home in a private vehicle. CM will continue to follow. Social Determinants of Health Screening Social Determinants of health last assessed in clinic: 02/21/25 Will the Patient Participate in the Screening?: Yes Do you worry about having a steady place to live?: no Problems where you live: no known problems In the past 12 months, have you had to go without electric, gas, oil or water in your home?: no 1. Within the past 12 months, we worried whether our food would run out before we got money to buy more.: Sometimes true 2. Within the past 12 months, the food we bought just didn't last and we didn't have money to get more.: Sometimes true Has lack of transportation kept you from medical appointments or from doing things needed for daily living?: no Has anyone in your life made you feel unsafe or unsupported?: no How hard is it for you to pay for the very basics like food, housing, medical care, and heating? Would you say it is:: Not hard at all Do you want help finding or keeping work or a job?: I do not need or want help If for any reason you need help with day-to-day activities such as bathing, preparing meals, shopping, managing finances, etc., do you get the help you need?: I don?t need any help How often do you feel lonely or isolated from those around you?: Never Do you speak a language other than Jordanian at home?: No Does the patient want assistance with any of the above?: No Health Related Social Needs Health related social needs: food insecurity (Z59.41) Health related social needs details: none
[2025-02-21 19:23] VITALS: BP 140/83; PULSE 73; RESP 18; TEMP 36.6; O2SAT 96
[2025-02-21] MEDS: Potassium Chloride 20 MEQ TABCR PO (20:18)
--- NOTE | 2025-02-22 | DI.US_ITS ---
Exam(s) US EXTREMITY VENOUS BI EXAM: US EXTREMITY VENOUS BI CLINICAL HISTORY: lower extremity swelling pain. TECHNIQUE: Bilateral lower extremity venous ultrasound performed using grayscale, color-flow, and spectral Doppler analysis. COMPARISON: No exams were available for comparison FINDINGS: The bilateral common femoral, femoral and popliteal veins demonstrate normal compressibility, augmentation, and color Doppler. The posterior tibial and peroneal veins are patent. Bilateral normal appearing groin lymph nodes. Lymph nodes are also seen in the left popliteal fossa. IMPRESSION: Right: Negative for DVT Left: Negative for DVT DATA REPOSITORY:
[2025-02-22] MEDS: Ketorolac 15 MG/ML VIAL IVP ×2 (01:39→10:07)
[2025-02-22] MEDS: CLINDAMYCIN 600 MG/50 ML BAG 100 MG IVPB (01:39)
[2025-02-22] MEDS: Acetaminophen 325 MG TAB 650 MG PO ×3 (06:37→15:10)
[2025-02-22 06:57] LABS: Abs Immature Grans 0.04 10^3/uL (0.0-0.06); HCT 45.4 % (40.0-50.0); HGB 15.0 g/dL (13.5-17.5); Immature Grans % 0.5 %; MCH 30.7 pg (27.0-33.0); MCHC 33.0 % (32.0-36.0); MCV 93 fL (80-95); MPV 8.6 fL (8.0-11.0); Platelet Count 206 10^3/uL (130-400); RBC 4.89 10^6/uL (4.36-5.78); RDW 13.0 % (11.8-14.1); RDW-SD 44.3 fL; WBC 7.45 10^3/uL (4.4-10.8)
[2025-02-22 07:50] LABS: Anion Gap 6.4 mmol/L (3-11); BUN 23 mg/dL (7-18); CO2 30.6 mmol/L (21.0-32.0); Calcium 7.9 mg/dL (8.5-10.1); Chloride 105 mmol/L (98-107); Estimated GFR 114.74 (mL/min/1.73m2); Glucose 87 mg/dL (74-106); Potassium 4.2 mmol/L (3.5-5.1); Sodium 142 mmol/L (136-145)
[2025-02-22 08:08] VITALS: BP 152/95; PULSE 66; RESP 16; TEMP 36.6; O2SAT 96
[2025-02-22] MEDS: predniSONE 20 MG TAB 40 MG PO (10:08)
[2025-02-22] MEDS: Pantoprazole 40 MG TABCR PO (10:09)
[2025-02-22] MEDS: Potassium Chloride 20 MEQ TABCR PO (10:10)
[2025-02-22] MEDS: Lactobacillus Acidophilus CAP 1 CAP PO ×2 (10:10→15:09)
[2025-02-22] MEDS: Clindamycin 150 MG CAP 450 MG PO (10:10)
--- NOTE | 2025-02-22 10:39 | W.PM.DS.N ---
Date of service: 02/22/25 Time of Service: 13:30 DS: Diagnosis Discharge Diagnosis (1) Rash and nonspecific skin eruption: Status: Acute (2) Bilateral lower extremity edema: Status: Acute (3) Bilateral leg and foot pain: Status: Acute (4) Eczema: Status: Chronic (5) History of alcohol abuse: Status: Chronic Discharge Plan Disposition Patient Disposition: Home W/Home Health Services Condition: Improving Discharge Details Reason For Visit: Painful Rash Bilateral Legs and Feet, Eczema Admit Date/Time: 02/19/25 03:05 Admit Provider: Antony Cee Attending Provider: Antony Cee [facility]: 39 years old male patient with a PMHx of ETOH abuse, eczema presented to the ED on 02/19/25 with worsening bilateral foot and ankle pain over the last 3 days with bilateral lower extremity swelling, redness, weeping and earlier a purpleish hue and having difficulty ambulating now because of the pain. No reported fever or calf pain. The patient was admitted for pain management, steroid burst, antibiotic therapy and further evaluation and management. Treatment with IV clindamycin, methylprednisolone transitioned to oral therapy, topical triamcinolone, metronidazole added to regimen. Wound swab showed rare GPC without further. Imaging of lower extremities negative for DVT. Remained afebrile during hospital stay. Physical therapy consultation completed with recommendations for: ambulation with assistive device and use of supportive post op shoes ( provided). On the day of discharge, the patient was Hemodynamically stable with normal renal function,electrolytes and CBC. and will have to follow-up with outpatient provider within 7 days of discharge. Home health physical therapy and nursing referral completed. Scripts sent electronically to listed pharmacy. Lower extremities: BID dressing change with wound wash and dry - apply triamcinolone thin layer, Telfa or non-adherent dressing on opened areas, gauze then loose ALEXANDER wrap. Discussed with Dr. Hill Home Meds and New Rx's Prescriptions: New acetaminophen 325 mg Tablet 650 mg PO Q6H Qty: 30 0RF clindamycin HCl 150 mg Capsule 450 mg PO Q8H Qty: 15 0RF pantoprazole 40 mg Tablet,Delayed Release (Dr/Ec) 40 mg PO DAILY@0730 Qty: 30 0RF prednisone 20 mg Tablet 40 mg PO DAILY Qty: 8 0RF triamcinolone acetonide 0.1 % cream 1 applic topical BID Qty: 453.6 0RF Rx Instructions: Format can be changed if not possible to get a jar ibuprofen 800 mg tablet 800 mg PO Q8H Qty: 15 0RF metronidazole 500 mg tablet 500 mg PO Q8H Qty: 14 0RF Bio-K plus 50 billion cell capsule,delayed release(DR/EC) 1 cap PO DAILY Qty: 10 0RF Rx Instructions: Can be substituted by pharmacist -if not available Discontinued pantoprazole 20 mg tablet,delayed release (DR/EC) 20 mg PO DAILY Qty: 10 0RF Discharge Instructions Stand Alone Forms: Nursing Discharge Form Referrals: No,Local [Primary Care Provider, Unknown] Referral Note: Follow-up within 7 days of discharge Referral to dermatology needed if persistent rash VS eczema flare Activity:: Activity as Tolerated Equipment/Supplies:: Walker Diet:: As Tolerated DS: Summary Time Spent with Patient providing and/or coordinating discharge services: Greater than 30 minutes Status at Discharge Functional status at discharge: uses cane/walker Overall status at discharge: patient is progressing back to baseline Mental Status: mental status grossly normal Speech and Movement: speech and movement normal Mood: congruent mood Affect: normal affect Quality:SDOH Health Related Social Needs: Health related social needs food insecurity Health related social needs details none Health related social needs details: none Exam Narrative Exam Narrative: alert and oriented X4 , no focal neurological deficit, moves all 4 ext. , unlabored respiration clear breath sounds , S1, S2 regular , abdomen is non-acute, no CVA tenderness, bilateral LEs remendousl reduced swelling , decreased dryness , improved discomfort no opioids overnight and less report of skin tightness, moves all 4 ext Psych Mental Status: mental status grossly normal Speech and Movement: speech and movement normal Mood: congruent mood Affect: normal affect DS: Data Vitals/I&O Vitals and I&O: Vital Signs Temperature 36.6 C 02/22/25 08:08 Temperature Source Temporal Artery Scan 02/22/25 08:08 Pulse 66 02/22/25 08:08 Respiratory Rate 16 02/22/25 08:08 Respiratory Effort Normal 02/19/25 04:26 Respiratory Depth Normal 02/19/25 04:26 Respiratory Pattern Normal 02/19/25 04:26 Blood Pressure 152/95 H 02/22/25 08:08 Blood Pressure Mean 114 02/22/25 08:08 Blood Pressure Position Sitting 02/18/25 23:46 Pulse Oximetry 96 02/22/25 08:08 Oxygen Delivery Method Room Air 02/22/25 08:08 Oxygen Flow Rate 0 02/22/25 08:08 Pain Level 6 02/22/25 10:09 Comment pt refused vs 02/22/25 02:17 Intake & Output 02/21/25 02/21/25 02/22/25 11:59 23:59 11:59 Intake Total 580 / 1580 1000 / 1580 50 / 50 Balance 580 / 1580 1000 / 1580 50 / 50 Weight 108.1 kg 107.6 kg Intake: IV 110 / 210 100 / 210 50 / 50 Oral 470 / 1370 900 / 1370 Other: Comment pt voided independently. Stool Characteristics Soft Data Completed and Pending Labs on day of discharge: Labs from last 24 hours 02/22/25 02/21/25 06:26 06:30 WBC 7.45 RBC 4.89 Hgb 15.0 Hct 45.4 MCV 93 MCH 30.7 MCHC 33.0 RDW 13.0 Plt Count 206 MPV 8.6 Immature Gran % 0.5 Neutrophils % 72.1 Lymphocytes % 17.7 Monocytes % 9.1 Eosinophils % 0.3 Basophils % 0.3 Nucleated RBC % 0.0 Absolute Neutrophils 5.37 Absolute Lymphocytes 1.32 Absolute Monocytes 0.68 Absolute Eosinophils 0.02 Absolute Basophils 0.02 Sodium 142 Potassium 4.2 D Chloride 105 Carbon Dioxide 30.6 Anion Gap 6.4 BUN 23 H Creatinine 0.8 Est GFR (CKD-EPI 2020) 114.74 Glucose 87 Calcium 7.9 L Magnesium 2.1 Add-On Test Request DONE Preliminary micro results at discharge 02/20/25 12:00 Leg - Left Lower Wound Culture - Preliminary Gram positive sandy, mixed PFSH All Active Problems Eczema (Chronic) Rash and nonspecific skin eruption (Acute) Bilateral lower extremity edema (Acute) Bilateral leg and foot pain (Acute) History of alcohol abuse (Chronic) Hx of upper gastrointestinal hemorrhage (Acute ~2013) Erosive esophagitis (Chronic) Epigastric pain (Acute) a. With nausea. History of dysphagia (Chronic) History of Surgical Procedure (Chronic) a. Removal of foreign bodies from the esophagus x [address] Owen Laughlin. Medical History (Updated 10/11/25 @ 02:57 by Antony Cee) GERD (gastroesophageal reflux disease) Surgical History History of esophageal surgery Social History Smoking/Tobacco Use Status: Current every day Tobacco Type: cigarettes Smoking packs per day: 0 Smoking cigarettes per day: 0.0 Years smoked: 0 Smoking pack-years: 0.00 Smoking risk assessment performed?: Yes Alcohol Intake: former Drug use: Never Substance use type: does not use Housing: house Do you feel safe in your relationship?: Yes Time Spent with Patient Time Spent with Patient: >85 minutes Time was spent: preparing to see the patient(eg.review tests), obtaining and/or reviewing separately otained hiistory, ordering medications,tests, procedures, referring, communicating with other health daycare director, indepentently interpreting results, counseling the patient, care coordination and other
--- NOTE | 2025-02-22 13:58 | PDOC.HHF2F ---
Date of service: 02/22/25 Time of Service: 13:58 Home Health Referral Home Health Orders Clinical synopsis of why skilled professionals are needed: 39 years old male patient with a PMHx of ETOH abuse, eczema presented to the ED on 02/19/25 with worsening bilateral foot and ankle pain over the last 3 days with bilateral lower extremity swelling, redness, weeping and earlier a purpleish hue and having difficulty ambulating now because of the pain. No reported fever or calf pain. The patient was admitted for pain management, steroid burst, antibiotic therapy and further evaluation and management. Treatment with IV clindamycin, methylprednisolone transitioned to oral therapy, topical triamcinolone, metronidazole added to regimen. Wound swab showed rare GPC without further. Imaging of lower extremities negative for DVT. Remained afebrile during hospital stay. Physical therapy consultation completed with recommendations for: ambulation with assistive device and use of supportive post op shoes ( provided). On the day of discharge, the patient was Hemodynamically stable with normal renal function,electrolytes and CBC. and will have to follow-up with outpatient provider within 7 days of discharge. Home health physical therapy and nursing referral completed. Scripts sent electronically to listed pharmacy. Lower extremities: BID dressing change with wound wash and dry - apply triamcinolone thin layer, Telfa or non-adherent dressing on opened areas, gauze then loose ALEXANDER wrap. Return to work letter for Friday02/28/25 discussed with CM;can return earlier if able to ambulate independently sooner. Discussed with Dr. Hill Registered Nurse: Check all that apply Instruct on new or changed medication(s)/assess compliance: Ordered Assess for exacerbation of medical condition, instruct patient/caregivers on signs and symptoms to report for early detection: Ordered Physical Therapist: Check all that apply Increase strength & endurance for safe mobility at home: Ordered To design/establish home maintenance program: Ordered Home safety evaluation and teaching/gait training including stair management (if applicable): Ordered Home Bound Status Requires the aid of supportive device (check all that apply): Walker Describe why leaving home would require a considerable and taxing effort: Requires frequent rest periods Encounter Date and Reason: I certify that a FTF encounter for this patient was performed on February 22, 2025 and that such encounter was related to the primary reason the patient requires home health services. The encounter was conducted in the following manner: By me as the certifying physician, JUNIOR PROJECT COORDINATOR, PA or By an inpatient physician, JUNIOR PROJECT COORDINATOR or PA during an inpatient stay who communicated findings to me, Certification And Authentication I certify that I composed the above information based on my clinical judgment relating to this patient's medical condition and, if applicable, clinical findings communicated to me by the NPP or inpatient physician who performed the FTF encounter. Name of Provider that will be monitoring home health services: Marcelo Hill
--- NOTE | 2025-02-22 14:43 | PT.INTREAT ---
PT Notes Visit Reasons: Painful Rash Bilateral Legs and Feet, Eczema Physical Therapy Inpatient Treatment Note Date: 02/22/2025 Precautions: Fall. Standard. WBAT on B LE with AD. Subjective: Panna Maria safe walking with nothing and no post op shoes today. Said that today is a way better than how he was yesterday. Objective: General Observation: B legs and feet without dressing. Mental Status: Alert and awake for as to person, place, time, and purpose. Able to pay attention, focus, and respond appropriately. Pain: 1/10 Vital Signs: Closely monitored by nursing staff Bed Mobility/Transfers: Rolling independent Supine to sit independent Sit to supine independent Sit to stand independent Stand to sit independent Bed to reclining chair independent Reclining chair to bed independent Gait: 250 feet without device and without post op shoes, independently. Pain level was only 1/10 in B feet. Stairs: Up and down 3 x 4-inch steps and 2 x 6-inch steps while holding onto B rails for support, supervision only. Balance: Static Sitting: Normal Dynamic Sitting: Normal Static Standing: Normal Dynamic Standing: Good Assessment: Patient goes home with no assistive device and no need of post op shoes. Now at independent level with mobility for indoor ambulation. Plan of Care/Treatment Plan: 1-2x/day, 7 days/week x 1 week. Plan of care has been reviewed with the COMPUTER PROGRAMMING MANAGER providing the service under Physical Therapy direction. Initiate Physical Therapy intervention for pain management as needed, strengthening, bed mobility, transfers, gait, stairs, balance training, and use of assistive device. DISCHARGE RECOMMENDATIONS: PT to progress back to independent mobility level without AD TREATMENT CODE/TIME: 09348 x 15 minutes for 1 unit (14:43-14:58).
[2025-02-22] MEDS: Triamcinolone 0.1% CR 15 GM TUBE TP (15:06)
[2025-02-22] MEDS: metroNIDAZOLE 500 MG TAB PO (15:09)
--- NOTE | 2025-02-22 15:16 | CMDISCH_ITS ---
Date of service: 02/22/25 Time of Service: 15:17 LACE Index Scoring Tool Questions: Length of Stay (in days): 3 Was the patient admitted via the E.D.?: Yes E.D. Visits: 1 Answers: Total Score: 7 Risk of Readmission: Low Risk Care Management Discharge Plan Reason for Hospitalization: rash and nonspecific skin eruption of bilateral lower extremeties Discharge Plan: Osmani is discharging home this afternoon. He was strongly encouraged to engage with the [facility] and establish as a patient. He was encouraged to return to the ED or urgent care if symptoms are worsening. His medication costs were verified at his home pharmacy and are affordable to him. Ed was given a return to work note. He will transport home in a private vehicle with his mom. Patient/Family Education Needs: Review of discharge instructions, activity, limitations and discuss Ask me 3. SDOH Health Related Social Needs: Health related social needs food insecurity Health related social needs details none Health related social needs details: none
== END 2025-02-22 16:10 | disposition home health service (06) ==
LOC: ER 02-19 03:11 → MS 02-19 03:32
PROVIDERS: Admitting Provider Family Medicine; Emergency Provider Emergency Medicine; Responsible Provider Nurse Practitioner Acute Care; Visit Provider Family Medicine
DX: R21 Rash and other nonspecific skin eruption (principal); R60.0 Localized edema; M79.604 Pain in right leg; M79.605 Pain in left leg; M79.671 Pain in right foot; M79.672 Pain in left foot; L30.8 Other specified dermatitis; F10.11 Alcohol abuse, in remission; K22.10 Ulcer of esophagus without bleeding; K21.9 Gastro-esophageal reflux disease without esophagitis; R26.2 Difficulty in walking, not elsewhere classified; Z59.41 Food insecurity
CPT/HCPCS: 00123; 36415; 80048; 80053; 80307; 82805; 85027; 85652; 87077; 87637; 96361; 96374; 96375; 96376; 97161; 97530; 99285; J1650; 80320; 81003; 83605; 83735; 84443; 85025; 85610; 85730; 86140; 87070; 87186; 87205; 93970; 99222; 99233; 99239; G0378; J0737; J1171; J1885; J2270; J2919; J7512